=== PATIENT | female | born 1985 | race Caucasian/White ===

== ENCOUNTER 2020-04-24 18:26 | Emergency (ER) | payer BC ==
[2020-04-24] MEDS ORDERED: Lactated Ringers 1,000 ML IV ONE (18:47)
[2020-04-24] MEDS ORDERED: diphenhydrAMINE 50 MG/ML SDV IVPUSH ONE (18:49)
[2020-04-24] MEDS ORDERED: Metoclopramide 10 MG/2 ML SDV IVPUSH ONE (18:49)
--- NOTE | 2020-04-24 18:59 | EDM.PDOC ---
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 LMP was 02/28/2020. She is approximately 8 weeks . Patient states she has vomited three to four times today and can only keep solid foods down for 30 minutes before she needs to vomit. She is prescribed Zofran and Phenergan and took Zofran today without any relief. She states she gets weekly IV fluid infusions at [facility], but they were full so she didn't get it today. She admits to a headache and has history of migraines. She states that topical Phenergan works better for her than oral. (Ami Ross) - Related Data Allergies Allergy/AdvReac Type Severity Reaction Status Date / Time No Known Allergies Allergy Verified 04/24/20 18:38 Past Medical History - Past Health History Medical/Surgical History: Denies Medical/Surgical History Neurological History: Reports: Migraines Psychiatric History: Reports: Anxiety, Depression <Ami Ross - Last Filed: 04/24/20 18:50> Social & Family History - Family History Family Medical History: No Pertinent Family History - Tobacco Use Tobacco Use Status *Q: Never Tobacco User - Caffeine Use Caffeine Use: Reports: None - Recreational Drug Use Recreational Drug Use: No <Ami Ross - Last Filed: 04/24/20 18:50> ED ROS GENERAL - Review of Systems Review Of Systems: Comprehensive ROS is negative, except as noted in HPI. <Ami Ross - Last Filed: 04/24/20 18:50> - Review of Systems Review Of Systems: See Below <Graham Nash - Last Filed: 04/24/20 20:04> ED EXAM - Physical Exam Exam: See Below Exam Limited By: No Limitations General Appearance: Alert, WD/WN, No Apparent Distress Ears: Normal External Exam Nose: Normal Inspection, Normal Mucosa Throat/Mouth: Normal Inspection, Normal Lips, Normal Gums Head: Atraumatic, Normocephalic Neck: Normal Inspection, Supple, Non-Tender, Full Range of Motion Respiratory/Chest: No Respiratory Distress, Lungs Clear, Normal Breath Sounds Cardiovascular: Normal Peripheral Pulses, Regular Rate, Rhythm GI/Abdominal Exam: Normal Bowel Sounds, Soft, Non-Tender, Other (Gravid) Back Exam: Normal Inspection, Full Range of Motion Extremities: Normal Inspection, Normal Range of Motion, Non-Tender Neurological: Alert, Oriented, CN II-XII Intact, Normal Cognition Psychiatric: Normal Affect, Normal Mood Skin Exam: Warm, Dry, Intact, Normal Color, No Rash Lymphatic: No Adenopathy <Ami Ross - Last Filed: 04/24/20 18:50> Course <Ami Ross - Last Filed: 04/24/20 18:50> <Graham Nash - Last Filed: 04/24/20 20:04> - Vital Signs Last Recorded V/S: Last Vital Signs Temp 98.1 F 04/24/20 18:34 Pulse 86 04/24/20 18:34 Resp 14 04/24/20 18:34 BP 150/85 H 04/24/20 18:34 Pulse Ox 98 04/24/20 18:34 - Orders/Labs/Meds Labs: Laboratory Tests 04/24/20 04/24/20 Range/Units 18:59 18:59 WBC 9.72 (3.98-10.04) K/mm3 RBC 4.77 (3.98-5.22) M/mm3 Hgb 13.1 (11.2-15.7) gm/dl Hct 39.6 (34.1-44.9) % MCV 83.0 (79.4-94.8) fl MCH 27.5 (25.6-32.2) pg MCHC 33.1 (32.2-35.5) g/dl RDW Std Deviation 43.4 (36.4-46.3) fL Plt Count 235 (182-369) K/mm3 MPV 9.3 L (9.4-12.3) fl Neut % (Auto) 71.0 (34.0-71.1) % Lymph % (Auto) 21.5 (19.3-51.7) % [place] % (Auto) 6.2 (4.7-12.5) % Eos % (Auto) 1.0 (0.7-5.8) Baso % (Auto) 0.2 (0.1-1.2) % Neut # (Auto) 6.90 H (1.56-6.13) K/mm3 Lymph # (Auto) 2.09 (1.18-3.74) K/mm3 [place] # (Auto) 0.60 H (0.24-0.36) K/mm3 Eos # (Auto) 0.10 (0.04-0.36) K/mm3 Baso # (Auto) 0.02 (0.01-0.08) K/mm3 Sodium 137 (136-145) mEq/L Potassium 3.7 (3.5-5.1) mEq/L Chloride 102 (98-107) mEq/L Carbon Dioxide 24 (21-32) mEq/L Anion Gap 14.7 (5-15) BUN 9 (7-18) mg/dL Creatinine 0.8 (0.55-1.02) mg/dL Est Cr Clr Drug Dosing 104.53 mL/min Estimated GFR (MDRD) > 60 (>60) mL/min BUN/Creatinine Ratio 11.3 L (14-18) Glucose 98 (74-106) mg/dL Calcium 8.9 (8.5-10.1) mg/dL Total Bilirubin 0.4 (0.2-1.0) mg/dL AST 13 L (15-37) U/L ALT 27 (14-59) U/L Alkaline Phosphatase 48 (46-116) U/L Total Protein 6.8 (6.4-8.2) g/dl Albumin 3.3 L (3.4-5.0) g/dl Globulin 3.5 gm/dL Albumin/Globulin Ratio 0.9 L (1-2) Meds: Medications Discontinued Medications Generic Name Dose Route Start Last Admin Trade Name Freq PRN Reason Stop Dose Admin Diphenhydramine HCl 50 mg 04/24/20 18:49 04/24/20 19:14 Benadryl IVPUSH 04/24/20 18:50 50 mg ONETIME ONE Administration Lactated Ringer's 1,000 mls @ 1,000 mls/hr 04/24/20 18:47 04/24/20 19:15 Ringers, Lactated IV 04/24/20 19:46 1,000 mls/hr .BOLUS ONE Administration Metoclopramide HCl 10 mg 04/24/20 18:49 04/24/20 19:16 Reglan IVPUSH 04/24/20 18:50 10 mg ONETIME ONE Administration - Re-Assessments/Exams Free Text/Narrative Re-Assessment/Exam: 04/24/20 19:01 Yissel is a 34 year old female presenting to ED with intractable nausea and vomiting. LMP was 02/27; approximate gestational age is 8 weeks. She is still experiencing nausea, vomiting and currently complains of a headache so Reglan and Benadryl was given. Will wait on results from CBC and CMP to assess status. (Ami Ross) 04/24/20 20:02 I examined he patient myself and I agree with Ami's assessment and plan. I ordered an IV LR 1L bolus, reglan 10mg IV, benadryl 50mg IV and labs. Her CBC and CMP look good. She feels better after the fluid. I will discharge her home. (Graham Nash) Departure <Ami Ross - Last Filed: 04/24/20 18:50> - Departure Time of Disposition: 20:30 Condition: Good - Discharge Information *PRESCRIPTION DRUG MONITORING PROGRAM REVIEWED*: Not Applicable *COPY OF PRESCRIPTION DRUG MONITORING REPORT IN PATIENT ROMANA: Not Applicable <Graham Nash - Last Filed: 04/24/20 20:04> - Departure Disposition: Home, Self-Care 01 Clinical Impression: Nausea and vomiting during Qualifiers: Weeks of gestation: 8 weeks Qualified Code(s): Z3A.08 - 8 weeks gestation of - Discharge Information Referrals: Josey Sosa MD [Primary Care Provider] - 1 Week Forms: ED Department Discharge Additional Instructions: Take your medication as prescribed. Try to push the fluids. Please return if you are worse. Sepsis Event Note (ED) - Evaluation Sepsis Screening Result: No Definite Risk <Ami Ross - Last Filed: 04/24/20 18:50> - Focused Exam Vital Signs: Vital Signs Temp Pulse Resp BP Pulse Ox 04/24/20 18:34 98.1 F 86 14 150/85 H 98
== END 2020-04-24 20:22 | disposition home or self-care (01) ==
LOC: JD.ED 18:26
DX: O21.9 Vomiting of pregnancy, unspecified (principal); Z3A.08 8 weeks gestation of pregnancy
CPT/HCPCS: 36415; 80053; 85025; 96374; 96375; 99284; J1200; J2765; J7120; 99283

== ENCOUNTER 2020-05-16 19:41 | Emergency (ER) | payer BC, OTHER ==
[2020-05-16] MEDS ORDERED: Sodium Chloride 0.9% 1,000 ML IV STA (20:16)
--- NOTE | 2020-05-16 20:21 | EDM.PDOC ---
ED HPI GENERAL MEDICAL PROBLEM - General Chief Complaint: FILM HISTORIAN Problem Stated Complaint: 11 WKS PG ABDOMINAL PAIN Time Seen by Provider: 05/16/20 19:52 Source of Information: Reports: Patient, RN Notes Reviewed History Limitations: Reports: No Limitations - History of Present Illness INITIAL COMMENTS - FREE TEXT/NARRATIVE: Patient is a 35-year-old female 11 weeks gestation presenting to the emergency department with complaints of severe pelvic cramping radiating into her lower back. This began around 1700 this evening. At 1 point, she states the pain was 10 out of 10 and that she was on the floor in the position due to the pain. It has since improved slightly but is definitely still present. She has had no vaginal bleeding associated with this. She states that she called the labor and delivery department prior to coming here and they spoke to her FILM HISTORIAN, Dr. Sosa, and she recommended that she come in to the ER for evaluation. She did see her FILM HISTORIAN today for routine follow-up and everything was found to be normal. heart tones were normal. She did have an early ultrasound completed which she states was also normal. Lower Abdominal Pain Score (Numeric/FACES): 8 - Related Data Allergies Allergy/AdvReac Type Severity Reaction Status Date / Time No Known Allergies Allergy Verified 05/16/20 19:52 Home Meds: Home Meds FLUoxetine HCl [Prozac] 20 mg PO DAILY 04/24/20 [History] FLUoxetine [PROzac] 40 mg PO DAILY 04/24/20 [History] Ondansetron [Zofran ODT] 4 mg PO Q4HR PRN 04/24/20 [History] Promethazine [Phenergan] 25 mg PO Q8H PRN 04/24/20 [History] Past Medical History - Past Health History Medical/Surgical History: Denies Medical/Surgical History FILM HISTORIAN History: Reports: Neurological History: Reports: Migraines Psychiatric History: Reports: Anxiety, Depression Social & Family History - Family History Family Medical History: No Pertinent Family History - Tobacco Use Tobacco Use Status *Q: Never Tobacco User - Caffeine Use Caffeine Use: Reports: None - Recreational Drug Use Recreational Drug Use: No ED ROS GENERAL - Review of Systems Review Of Systems: See Below Constitutional: Reports: No Symptoms HEENT: Reports: No Symptoms Respiratory: Reports: No Symptoms Cardiovascular: Reports: No Symptoms Endocrine: Reports: No Symptoms GI/Abdominal: Reports: No Symptoms : Reports: Other (pelvic cramping). Denies: Discharge, Dysuria, Flank Pain, Frequency Musculoskeletal: Reports: No Symptoms Skin: Reports: No Symptoms Neurological: Reports: No Symptoms Psychiatric: Reports: No Symptoms Hematologic/Lymphatic: Reports: No Symptoms Immunologic: Reports: No Symptoms ED EXAM - Physical Exam Exam: See Below General Appearance: Alert, WD/WN, No Apparent Distress Respiratory/Chest: No Respiratory Distress, Lungs Clear, Normal Breath Sounds, No Accessory Muscle Use, Chest Non-Tender Cardiovascular: Normal Peripheral Pulses, Regular Rate, Rhythm, No Edema, No Gallop, No JVD, No Murmur, No Rub GI/Abdominal Exam: Normal Bowel Sounds, Soft, No Organomegaly, No Distention, No Abnormal Bruit, No Mass, Pelvis Stable, Tender (suprapubic tenderness) (Female) Exam: Normal External Exam, Normal Speculum Exam. No: Cervical Dilatation, Cervical Discharge, Cervical Lesions, Products of Conception, Tissue Present in Cervix/Vagina, Vaginal Bleeding Neurological: Alert, Oriented, CN II-XII Intact, Normal Cognition, Normal Gait, Normal Reflexes, No Motor/Sensory Deficits Psychiatric: Normal Affect, Normal Mood Skin Exam: Warm, Dry, Intact, Normal Color, No Rash Course - Vital Signs Last Recorded V/S: Last Vital Signs Temp 98.5 F 05/16/20 19:50 Pulse 80 05/16/20 19:50 Resp 16 05/16/20 19:50 BP 147/89 H 05/16/20 19:50 Pulse Ox 99 05/16/20 19:50 - Orders/Labs/Meds Labs: Laboratory Tests 05/16/20 05/16/20 05/16/20 Range/Units 19:55 20:30 20:30 WBC 7.65 (3.98-10.04) K/mm3 RBC 4.44 (3.98-5.22) M/mm3 Hgb 12.3 (11.2-15.7) gm/dl Hct 37.0 (34.1-44.9) % MCV 83.3 (79.4-94.8) fl MCH 27.7 (25.6-32.2) pg MCHC 33.2 (32.2-35.5) g/dl RDW Std Deviation 45.3 (36.4-46.3) fL Plt Count 222 (182-369) K/mm3 MPV 9.3 L (9.4-12.3) fl Neut % (Auto) 67.2 (34.0-71.1) % Lymph % (Auto) 24.6 (19.3-51.7) % [place] % (Auto) 5.8 (4.7-12.5) % Eos % (Auto) 2.2 (0.7-5.8) Baso % (Auto) 0.1 (0.1-1.2) % Neut # (Auto) 5.14 (1.56-6.13) K/mm3 Lymph # (Auto) 1.88 (1.18-3.74) K/mm3 [place] # (Auto) 0.44 H (0.24-0.36) K/mm3 Eos # (Auto) 0.17 (0.04-0.36) K/mm3 Baso # (Auto) 0.01 (0.01-0.08) K/mm3 Sodium 137 (136-145) mEq/L Potassium 3.8 (3.5-5.1) mEq/L Chloride 105 (98-107) mEq/L Carbon Dioxide 24 (21-32) mEq/L Anion Gap 11.8 (5-15) BUN 6 L (7-18) mg/dL Creatinine 0.7 (0.55-1.02) mg/dL Est Cr Clr Drug Dosing 118.35 mL/min Estimated GFR (MDRD) > 60 (>60) mL/min BUN/Creatinine Ratio 8.6 L (14-18) Glucose 113 H (74-106) mg/dL Calcium 8.7 (8.5-10.1) mg/dL Magnesium 1.8 (1.8-2.4) mg/dl Total Bilirubin 0.2 (0.2-1.0) mg/dL AST 19 (15-37) U/L ALT 25 (14-59) U/L Alkaline Phosphatase 51 (46-116) U/L Total Protein 6.2 L (6.4-8.2) g/dl Albumin 2.7 L (3.4-5.0) g/dl Globulin 3.5 gm/dL Albumin/Globulin Ratio 0.8 L (1-2) Urine Color Yellow (Yellow) Urine Appearance Cloudy H (Clear) Urine pH 7.0 (5.0-8.0) Ur Specific [place] > or = 1.030 (1.005-1.030) Urine Protein Negative (Negative) Urine Glucose (UA) Negative (Negative) Urine Ketones Negative (Negative) Urine Occult Blood Negative (Negative) Urine Nitrite Negative (Negative) Urine Bilirubin Negative (Negative) Urine Urobilinogen 0.2 (0.2-1.0) Ur Leukocyte Esterase Negative (Negative) Meds: Medications Discontinued Medications Generic Name Dose Route Start Last Admin Trade Name Devynq PRN Reason Stop Dose Admin Sodium Chloride 1,000 mls @ 999 mls/hr 05/16/20 20:16 05/16/20 20:30 Normal Saline IV 05/16/20 21:16 999 mls/hr NOW STA Administration Ondansetron HCl 4 mg 05/16/20 20:24 05/16/20 20:31 Zofran IVPUSH 05/16/20 20:25 4 mg ONETIME ONE Administration Ondansetron HCl Confirm 05/16/20 20:24 05/16/20 20:31 Zofran Administered 05/16/20 20:25 Not Given Dose 4 mg .ROUTE .STK-MED ONE - Re-Assessments/Exams Free Text/Narrative Re-Assessment/Exam: Patient is a 35-year-old female G1, P0 approximate 11 weeks gestation presenting to the emergency department with acute onset of pelvic cramping radiating through to her back. This started around 1700 this evening. She states at 1 point it was so severe that she was curled up in the position on the floor. It is still present but has improved slightly. She called and spoke with labor and delivery who spoke with her FILM HISTORIAN was recommended that she come in for evaluation. She has had no bleeding or abnormal vaginal discharge. Denies dysuria. I have ordered blood work, urinalysis, OB transvaginal ultrasound. Once this is complete, I will do a pelvic exam and then consult with the patient's FILM HISTORIAN. 05/16/20 21:55 Hematology was grossly unremarkable. Urinalysis negative for infection. Transvaginal ultrasound shows a single live intrauterine gestation measuring 11 weeks 5 days with an estimated due date of 11/30/2020. 3.3 cm uterine fundal mass likely represents a fibroid. Pelvic exam was normal. Cervix is closed. There is no bleeding noted from the cervical os or blood within the vagina. Case discussed with Dr. Sosa. She recommends Tylenol and rest. She stated that if she needs to follow-up with her in the clinic still this week, she can. I will provide her with a note off from work for tomorrow. Discharge instructions as documented. Departure - Departure Time of Disposition: 21:56 Disposition: Home, Self-Care 01 Condition: Good Clinical Impression: Pelvic pain affecting Qualifiers: Trimester: first trimester Qualified Code(s): O26.891 - Other specified related conditions, first trimester - Discharge Information *PRESCRIPTION DRUG MONITORING PROGRAM REVIEWED*: No *COPY OF PRESCRIPTION DRUG MONITORING REPORT IN PATIENT ROMANA: No Instructions: Pelvic Pain, Female, [id number] Referrals: Josey Sosa MD [Primary Care Provider] - Forms: ED Department Discharge, ED Return to Work/School Form Additional Instructions: You were seen in the emergency department for pelvic cramping that began early this evening. Work-up included blood work, urinalysis, and a transvaginal ultrasound. Results of the work-up were found to be normal. Case was discussed with your FILM HISTORIAN. She recommends routine Tylenol administration and rest. Ensure that you are getting an adequate amount of fluid. If the pain persist, you may follow-up with her in the clinic still this week or early next week. Return to ER as needed. Sepsis Event Note (ED) - Evaluation Sepsis Screening Result: No Definite Risk
[2020-05-16] MEDS ORDERED: Ondansetron 4 MG/2 ML SDV IVPUSH ONE (20:24)
[2020-05-16] MEDS ORDERED: Ondansetron 4 MG/2 ML SDV ONE (20:24)
--- NOTE | 2020-05-17 08:54 | US ---
First trimester obstetrical ultrasound: Multiple real-time images were obtained transabdominally. Dates: Working YVONNE: 12/04/20, gestational age 11 weeks 1 day Current ultrasound: YVONNE 11/30/20, gestational age 11 weeks 5 days Single intrauterine gestation is seen. Small embryo is identified. Small fibroid is felt to be present within the uterus measuring approximately 3.3 x 3.2 x 3.2 cm. Amniotic fluid volume is normal. Maternal right ovary is normal. Maternal left ovary is not seen. No free fluid is appreciated. Measurements: [place]-rump length: 5.05 cm - 11 weeks 5 days Heart rate: 176 bpm Impression: 1. Single intrauterine gestation with dates as noted above. 2. Small uterine fibroid. 3. Nonvisualized maternal left ovary. 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
== END 2020-05-16 22:05 | disposition home or self-care (01) ==
LOC: JD.ED 19:41
DX: O99.891 Other specified diseases and conditions complicating pregnancy (principal); R10.2 Pelvic and perineal pain; Z79.899 Other long term (current) drug therapy; Z3A.11 11 weeks gestation of pregnancy
CPT/HCPCS: 36415; 76801; 80053; 81003; 83735; 85025; 96374; 99284; J2405; J7030; 99283

== ENCOUNTER 2020-11-19 10:27 | Inpatient (IN) | payer OTHER ==
[2020-11-19] MEDS ORDERED: Sodium Chloride 0.9% 10 ML Syringe FLUSH PRN (11:27)
[2020-11-19] MEDS ORDERED: Nalbuphine 10 MG/1 ML Vial IVPUSH PRN (11:27)
[2020-11-19] MEDS ORDERED: Oxytocin/Lactated Ringers 10 UNIT/1,000 ML BAG IV SCH ×2 (11:30)
[2020-11-19] MEDS ORDERED: Misoprostol 25 MCG (1/4 of 100 MCG) Tab VAG PRN (11:46)
[2020-11-19] MEDS ORDERED: Lactated Ringers 1,000 ML IV SCH (12:00)
--- NOTE | 2020-11-19 12:25 | PCM.LDHP ---
L&D History of Present Illness - General Date of Service: 11/19/20 Admit Problem/Dx: Patient Status Order with Admit Dx/Problem 11/19/20 10:38 Patient Status [ADT] Routine 11/19/20 11:28 Patient Status [ADT] Routine Admission Diagnosis/Problem Admission Diagnosis/Problem Source of Information: Patient History Limitations: Reports: No Limitations - History of Present Illness Introduction:: Yissel Alva is a 35-year-old female at 37 weeks 6 days (YVONNE 12/04/2020) by LMP consistent with a 7-week ultrasound who presents with complaints of worsening itching over the last several days. She reports that she started to have some itching on the palms of her hands during the day on , 11/16. She then started to have some itching on the soles of her feet and that evening. In the morning of Friday, 11/17, she started to have itching on her entire body that has been steadily getting worse. She denies any rashes or any changes in her skin care. She denies any areas of redness or erythema. She has not been having any itching throughout the . She states that she has been feeling good movement. She has been having irregular contractions with times where they will be about 2 to 3 minutes apart for a short while and at other times they can be hours between contractions. She denies any leaking of fluid or vaginal bleeding. Timing/Duration: Reports: gradual onset (Of itching over the last several days), getting worse (For her itching that she has on the palms of her hands and soles of her feet where it is now on her entire body) Associated Symptoms: Denies: vaginal bleeding, vaginal discharge, vaginal fluid Present Illness Comments:: Yissel Alva is a 35-year-old G1, P0 female at 37 weeks 6 days (YVONNE 12/04/2020) by LMP consistent with a 7-week ultrasound who presents with new onset itching on the palms of her hands and soles of her feet. Patient has had an overall uncomplicated . She did have hyperemesis gravidarum in early until around 16 weeks of or so. She has not had significant nausea or vomiting since then. She had a normal anatomy ultrasound. There was noted to be mild pyelectasis in early monitoring of the but this resolved spontaneously. She was also noted to have a circumvallate placenta. She was monitored for growth given this finding on ultrasound. The growth has been suspected large for gestational age with recent ultrasounds being in the 97th to the 98th percentile for growth. She reports that she has been on Prozac 20 mg during the early and was increased to 60 mg but had some side effects with this. She is currently taking 40 mg daily. She was given Tdap vaccine on 09/07/2020. Her GBS swab was negative Her care has been with Dr. 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 in 2017 done for LUIS-3 G1: Current labs Blood type: O+ Antibody screen: Negative First trimester hematocrit/hemoglobin: 37.5%/12.9 on 05/16/2020 Platelets: 231 on 05/16/2020 Urine culture: Negative Rubella status: Immune Hepatitis B surface antigen: Negative RPR: Negative HIV: Negative Gonorrhea: Negative Chlamydia: Negative Anatomy ultrasound: Overall normal anatomy, circumvallate placenta, 97th percentile on most recent ultrasound done on 10/23/2020 One hour glucose tolerance test: 108 Second trimester hematocrit/hemoglobin: 33.7%/11.5 on 09/07/2020 Platelets: 212 on 09/07/2020 GBS status: Negative - Related Data Allergies/Adverse Reactions: Allergies Allergy/AdvReac Type Severity Reaction Status Date / Time No Known Allergies Allergy Verified 05/16/20 19:52 Home Medications: Home Meds FLUoxetine [PROzac] 40 mg PO DAILY 11/19/20 [History] Ondansetron [Zofran Odt] 1 tab PO Q8HR PRN 11/19/20 [History] Pnv,Calcium 72/Iron/Folic Acid [ Vitamin with Low Iron] 1 each PO DAILY 11/19/20 [History] Past Medical History 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: Reports: : 1 Para: 0 Neurological History: Reports: Migraines Psychiatric History: Reports: Anxiety, Depression - Past Surgical History HEENT Surgical History: Reports: Oral Surgery ([place] tooth extraction), Tonsillectomy Female Surgical History: Reports: ALLEGRA (2017) Social & Family History - Family History Family Medical History: No Pertinent Family History - Tobacco Use Tobacco Use Status *Q: Former Tobacco User Tobacco Use Within Last Twelve Months: Cigarettes - Tobacco Core Measures Tobacco Use/Smoking Within Last 30 Days: No Smokeless Tobacco Use in Last 30 Days: No - Caffeine Use Caffeine Use: Reports: None - Alcohol Use Alcohol Use History: No - Recreational Drug Use Recreational Drug Use: No Drug Use in Last 12 Months: No - Living Situation & Occupation Living situation: Reports: , with Spouse H&P Review of Systems - Review of Systems: Review Of Systems: See Below General: Denies: Fever, Chills, Malaise, Weakness, Fatigue HEENT: Reports: Sinus Congestion. Denies: Headaches, Rhinitis, Post Nasal Drip, Sore Throat, Visual Changes Pulmonary: Denies: Shortness of Breath, Wheezing, Pleuritic Chest Pain, Cough Cardiovascular: Denies: Chest Pain, Palpitations, Dyspnea on Exertion Gastrointestinal: Reports: Nausea. Denies: Abdominal Pain, Constipation, Diarrhea, Vomiting Genitourinary: Denies: Dysuria, Frequency, Burning, Pain, Urgency Musculoskeletal: Reports: Back Pain (and hip pain of ) Skin: Reports: Pruritis (on whole body but started on palms of hands and soles of feet). Denies: Rash, Lesions Psychiatric: Denies: Depression, Anxiety L&D Exam - Exam Exam: See Below - Vital Signs Vital Signs: Last Vital Signs Temp Pulse 89 11/19/20 11:00 Resp BP Pulse Ox Weight: 117.934 kg - OB Specific Contraction Duration (sec): 30-60 Contraction Frequency (min): 2-7 Contraction Intensity: Mild Movement: Active Heart Tones: Present Heart Tones per Min: 135 (+15 x 15 accelerations, intermittent variable decelerations) Heart Rate (FHR) Variability: Moderate (6-25 bpm) Presentation: Vertex Estimated Weight: 7.5-8 pound by Dennis - Loyd Score Loyd Score Cervix Position: Posterior Loyd Score Consistency: Soft Loyd Score Effacement: 31-50% (50%) Loyd Score Dilation: 1-2 cm (1 cm) Loyd Score Infant's Station: -3 (-4) Loyd Score Total: 4 - Exam General: Alert, Oriented HEENT: Conjunctiva Clear, EOMI Neck: Supple, Trachea Midline Lungs: Clear to Auscultation, Normal Respiratory Effort Cardiovascular: Regular Rate, Regular Rhythm GI/Abdominal Exam: Soft, Non-Tender, No Distention, Other (Gravid). No: Gua rding, Rigid, Rebound Genitourinary: Normal external exam Extremities: Normal Inspection, Non-Tender, Pedal Edema (1+ edema in bilateral lower extremities to knees) Skin: Warm, Dry, Intact, Other (No rashes or excoriations noted) Psychiatric: Alert, Normal Affect, Normal Mood - Patient Data Lab Results Last 24 hrs: Laboratory Results - last 24 hr 11/19/20 11/19/20 11/19/20 Range/Units 10:50 10:50 10:50 WBC 7.06 (3.98-10.04) K/mm3 RBC 3.96 L (3.98-5.22) M/mm3 Hgb 10.7 L D (11.2-15.7) gm/dl Hct 33.0 L (34.1-44.9) % MCV 83.3 (79.4-94.8) fl MCH 27.0 (25.6-32.2) pg MCHC 32.4 (32.2-35.5) g/dl RDW Std Deviation 42.4 (36.4-46.3) fL Plt Count 229 (182-369) K/mm3 MPV 10.9 (9.4-12.3) fl Neut % (Auto) 62.9 (34.0-71.1) % Lymph % (Auto) 29.5 (19.3-51.7) % [place] % (Auto) 5.5 (4.7-12.5) % Eos % (Auto) 1.4 (0.7-5.8) Baso % (Auto) 0.3 (0.1-1.2) % Neut # (Auto) 4.44 (1.56-6.13) K/mm3 Lymph # (Auto) 2.08 (1.18-3.74) K/mm3 [place] # (Auto) 0.39 H (0.24-0.36) K/mm3 Eos # (Auto) 0.10 (0.04-0.36) K/mm3 Baso # (Auto) 0.02 (0.01-0.08) K/mm3 Sodium 137 (136-145) mEq/L Potassium 4.0 (3.5-5.1) mEq/L Chloride 104 (98-107) mEq/L Carbon Dioxide 21 (21-32) mEq/L Anion Gap 16.0 H (5-15) BUN 10 (7-18) mg/dL Creatinine 0.7 (0.55-1.02) mg/dL Est Cr Clr Drug Dosing 118.35 mL/min Estimated GFR (MDRD) > 60 (>60) mL/min BUN/Creatinine Ratio 14.3 (14-18) Glucose 105 H (70-99) mg/dL Calcium 8.6 (8.5-10.1) mg/dL Total Bilirubin 0.3 (0.2-1.0) mg/dL GGT 18 (5-55) U/L AST 47 H (15-37) U/L ALT 66 H (14-59) U/L Alkaline Phosphatase 264 H (46-116) U/L Lactate Dehydrogenase 242 H (81-234) U/L Total Protein 6.3 L (6.4-8.2) g/dl Albumin 2.1 L (3.4-5.0) g/dl Globulin 4.2 gm/dL Albumin/Globulin Ratio 0.5 L (1-2) Result Diagrams: 11/19/20 10:50 11/19/20 10:50 - Problem List (1) 37 weeks gestation of SNOMED Code(s): 96436590 ICD Code: Z3A.37 - 37 WEEKS GESTATION OF Status: Acute Current Visit: Yes (2) Intrahepatic cholestasis of in third trimester, antepartum SNOMED Code(s): 543833743, 355365354 ICD Code: O26.613 - LIVER AND BILIARY TRACT DISORD IN , THIRD TRIMESTER; K83.1 - OBSTRUCTION OF BILE DUCT Status: Acute Current Visit: Yes (3) Pre-eclampsia during in third trimester, antepartum SNOMED Code(s): 797308645, 324734130 ICD Code: O14.93 - UNSPECIFIED PRE-ECLAMPSIA, THIRD TRIMESTER Status: Acute Current Visit: Yes (4) Anxiety during SNOMED Code(s): 85504244527649 ICD Code: O99.340 - OTH MENTAL DISORDERS COMPLICATING , UNSP TRIMESTER; F41.9 - ANXIETY DISORDER, UNSPECIFIED Status: Acute Current Visit: Yes (5) Depression affecting SNOMED Code(s): 89303845382637 ICD Code: O99.340 - OTH MENTAL DISORDERS COMPLICATING , UNSP TRIMESTER; F32.9 - MAJOR DEPRESSIVE DISORDER, SINGLE EPISODE, UNSPECIFIED Status: Acute Current Visit: Yes (6) Obesity affecting , antepartum SNOMED Code(s): 701246618200, 659525208580 ICD Code: O99.210 - OBESITY COMPLICATING , UNSPECIFIED TRIMESTER Status: Acute Current Visit: Yes (7) Circumvallate placenta during in third trimester, antepartum SNOMED Code(s): 2078446, 25048445 ICD Code: O43.113 - CIRCUMVALLATE PLACENTA, THIRD TRIMESTER Status: Acute Current Visit: Yes Problem List Initiated/Reviewed/Updated: Yes Orders Last 24hrs: Active Orders 24 hr Category Date Time Status Patient Status [ADT] Routine ADT 11/19/20 11:28 Active Activity as Tolerated [RC] PFP Care 11/19/20 11:28 Active Communication Order [RC] ASDIRECTED Care 11/19/20 11:28 Active Communication Order [RC] ASDIRECTED Care 11/19/20 11:46 Active Communication Order [RC] ASDIRECTED Care 11/19/20 11:46 Active Communication Order [RC] ASDIRECTED Care 11/19/20 11:46 Active Heart Tones [RC] ASDIRECTED Care 11/19/20 11:29 Active Non Stress Test [RC] PER UNIT ROUTINE Care 11/19/20 10:38 Active Notify Provider [RC] ASDIRECTED Care 11/19/20 11:46 Active Notify Provider [RC] ASDIRECTED Care 11/19/20 11:48 Active Notify Provider [RC] PFP Care 11/19/20 11:28 Active Notify Provider [RC] PRN Care 11/19/20 11:28 Active Peripheral IV Care [RC] . DIRECTED Care 11/19/20 11:29 Active Urinary Catheter Assessment [RC] ASDIRECTED Care 11/19/20 11:27 Active Vaginal Exam [RC] ASDIRECTED Care 11/19/20 11:46 Active Vital Signs [RC] ASDIRECTED Care 11/19/20 11:46 Active Vital Signs [RC] PER UNIT ROUTINE Care 11/19/20 10:38 Active Regular Diet [DIET] Diet 11/19/20 Lunch Active BILE ACIDS [REF] Stat Lab 11/19/20 10:50 Received BLOOD BANK HOLD SPECIMEN [BBK] Routine Lab 11/19/20 10:50 Ordered CORONAVIRUS COVID-19 RONAK [MOLEC] Stat Lab 11/19/20 11:20 Received HEP C VIRUS AB [REF] Routine Lab 11/19/20 10:50 Received PROTEIN/CREATININE RATIO,URINE [URCHEM] Routine Lab 11/19/20 11:12 Ordered RAPID PLASMA REAGIN,RPR [CHEM] Routine Lab 11/19/20 11:28 Ordered Lactated Ringers [Ringers, Lactated] 1,000 ml Med 11/19/20 11:30 Active IV ASDIRECTED Lactated Ringers [Ringers, Lactated] 1,000 ml Med 11/19/20 12:00 Active IV ASDIRECTED Nalbuphine [Nubain] Med 11/19/20 11:27 Active 10 mg IVPUSH Q2H PRN Oxytocin/Lactated Ringers [Pitocin in LR 10 Units/1,000 Med 11/19/20 11:30 Active ML] 10 unit in 1,000 ml IV .CONTINUOUS Oxytocin/Lactated Ringers [Pitocin in LR 10 Units/1,000 Med 11/19/20 11:30 Active ML] 10 unit in 1,000 ml IV TITRATE Sodium Chloride 0.9% [Saline Flush] Med 11/19/20 11:27 Active 10 ml FLUSH ASDIRECTED PRN miSOPROStoL [Cytotec] Med 11/19/20 11:46 Active 25 mcg VAG Q4H PRN Electronic Heart Tones Ext w TOCO [WOMSER] Oth 11/19/20 11:28 Ordered Routine Electronic Heart Tones Internal [WOMSER] Per Unit Oth 11/19/20 11:28 Ordered Routine Peripheral IV Insertion Adult [OM.PC] Routine Oth 11/19/20 11:28 Ordered Resuscitation Status Routine Resus Stat 11/19/20 10:38 Ordered Medication Orders Lactated Ringer's (Ringers, Lactated) 1,000 mls @ 100 mls/hr IV ASDIRECTED KAMALA Oxytocin/Lactated Ringer's (Pitocin In Lr 10 Units/1,000 Ml) 10 unit in 1,000 mls @ 12 mls/hr IV TITRATE KAMALA; Protocol Oxytocin/Lactated Ringer's (Pitocin In Lr 10 Units/1,000 Ml) 10 unit in 1,000 mls @ 500 mls/hr IV .CONTINUOUS KAMALA Lactated Ringer's (Ringers, Lactated) 1,000 mls @ 40 mls/hr IV ASDIRECTED KAMALA Misoprostol (Misoprostol 25 Mcg (1/4 Of 100 Mcg) Tab) 25 mcg VAG Q4H PRN PRN Reason: cervical ripening Nalbuphine HCl (Nalbuphine 10 Mg/1 Ml Vial) 10 mg IVPUSH Q2H PRN PRN Reason: Pain Sodium Chloride (Sodium Chloride 0.9% 10 Ml Syringe) 10 ml FLUSH ASDIRECTED PRN PRN Reason: Keep Vein Open Assessment/Plan Comment:: Yissel Alva is a 35-year-old at 37 weeks 6 days with suspicion of intrahepatic cholestasis of with new onset itching that started on her palms of her hands and soles of her feet and has now been on the entire abdomen and body with elevated liver enzymes, suspected hypertension of that may possibly be preeclampsia with that is complicated by circumvallate placenta, anxiety and depression that is controlled on Prozac 40 mg daily, fetus measuring large for gestational age at the 97th percentile and obesity in Attempted placement of a transcervical [place] bulb manually with cervical exam but was unable to pass the [place] bulb through the cervix. A sterile speculum was then placed and the cervix was visualized. A ring forceps was then used to pass an 18 [place] catheter through the cervix and the [place] balloon was filled with 60 mL of sterile saline. On gentle traction the [place] bulb was felt to be in the correct position. Mother and infant tolerated procedure without difficulty. Cytotec was then started for additional cervical ripening Refer to observation for elective induction of labor Patient with placement of an 18 [place] transcervical [place] bulb that was filled with 60 mL of sterile saline. Start induction of labor with Cytotec 25 mcg vaginally now and every 4 hours for a total of up to 3 doses or until the [place] bulb comes out Continuous monitoring due to concern for gestational hypertension disorder Place IV and have Lactated Ringer's at 125 ml/hr if not tolerating regular diet May have regular diet while on Cytotec induction Activity as tolerated May have epidural as desired Plans to breast-feed after delivery Continue close monitoring of patient's vital signs due to elevated blood pressures that may indicate gestational hypertension versus preeclampsia CBC, CMP, lactate dehydrogenase and urine protein/creatinine ratio were collected GGT and total bile acids were collected. The GGT was within normal limits Hepatitis C lab collected due to not having this checked during the Anticipate vaginal delivery unless otherwise indicated Mykel Ortiz MD 12:38 PM 11/19/2020
[2020-11-19] MEDS: Lactated Ringers 1,000 ML IV SCH ×3 (16:16→23:16)
--- NOTE | 2020-11-19 18:36 | PCM.PNLD ---
Labor Progress Note - VS & Meds Vital Signs: Last Vital Signs Temp 37.3 C 11/19/20 11:46 Pulse 93 11/19/20 11:46 Resp BP 145/92 H 11/19/20 11:46 Pulse Ox Active Medications: Current Medications Lactated Ringer's (Ringers, Lactated) 1,000 mls @ 100 mls/hr IV ASDIRECTED KAMALA Last Admin: 11/19/20 16:16 Dose: 100 mls/hr Documented by: Oxytocin/Lactated Ringer's (Pitocin In Lr 10 Units/1,000 Ml) 10 unit in 1,000 mls @ 12 mls/hr IV TITRATE KAMALA; Protocol Oxytocin/Lactated Ringer's (Pitocin In Lr 10 Units/1,000 Ml) 10 unit in 1,000 mls @ 500 mls/hr IV .CONTINUOUS KAMALA Lactated Ringer's (Ringers, Lactated) 1,000 mls @ 40 mls/hr IV ASDIRECTED KAMALA Misoprostol (Misoprostol 25 Mcg (1/4 Of 100 Mcg) Tab) 25 mcg VAG Q4H PRN PRN Reason: cervical ripening Last Admin: 11/19/20 12:10 Dose: 25 mcg Documented by: Nalbuphine HCl (Nalbuphine 10 Mg/1 Ml Vial) 10 mg IVPUSH Q2H PRN PRN Reason: Pain Sodium Chloride (Sodium Chloride 0.9% 10 Ml Syringe) 10 ml FLUSH ASDIRECTED PRN PRN Reason: Keep Vein Open - Uterine Contractions Contraction Frequency (min): 2-3 Contraction Duration (sec): 45-75 Contraction Intensity: Moderate Uterine Resting Tone: Soft - Monitoring Monitor Mode: Doppler/Auscultation Heart Rate (FHR) Baseline: 130 Heart Rate (FHR) Per Doppler: 130 Heart Rate (FHR) Variability: Moderate (6-25 bpm) Accelerations: Present, 15x15 Decelerations: Early, Intermittent (<50% x 20 min) - Vaginal Exam Dilation (cm): 5 Effacement (Percent): 80 Station: -3 Cervical Position: Midposition Sterile Vaginal Exam Performed By: Mykel Ortiz Vaginal Exam Comment: Artificial rupture membranes performed with [place] with return of a large amount of clear fluid. Mother and tolerated procedure without difficulty. - Labor Progress (Free Text) Labor Progress: Yissel Alva is a 35-year-old at 37 weeks 6 days with suspicion of intrahepatic cholestasis of with new onset itching that started on her palms of her hands and soles of her feet and has now been on the entire abdomen and body with elevated liver enzymes and gestational hypertension that was diagnosed in labor with ongoing mild range blood pressures with normal labs for hypertensive disorders with that is complicated by circumvallate placenta, anxiety and depression that is controlled on Prozac 40 mg daily, fetus measuring large for gestational age at the 97th percentile and obesity in Patient underwent artificial rupture membranes with [place] with return of large amount of clear fluid. Mother and tolerated procedure without difficulty Continuous monitoring due to suspected intrahepatic cholestasis of and gestational hypertension Continue with small amounts of regular diet Activity as tolerated May have epidural as desired Routine vitals Monitor patient's contraction pattern and if not having significant discomfort with her contractions after approximately 1 hour after her rupture of membranes we will start her on Pitocin for augmentation of labor Anticipate vaginal delivery unless otherwise Mykel Ortiz MD 6:37 PM 11/19/2020
[2020-11-19] MEDS ORDERED: ePHEDrine 50 MG/ML SDV IVPUSH PRN (22:07)
[2020-11-19] MEDS ORDERED: diphenhydrAMINE 50 MG/ML SDV IVPUSH PRN (22:07)
--- NOTE | 2020-11-19 22:49 | PCM.PREANE ---
Preanesthetic Assessment - Procedure Proposed Procedure: Continuous labor epidural - Anesthesia/Transfusion/Family Hx Anesthesia History: Prior Anesthesia Without Reaction Transfusion History: No Prior Transfusion(s) - Review of Systems General: No Symptoms Pulmonary: No Symptoms Cardiovascular: No Symptoms Gastrointestinal: No Symptoms Neurological: No Symptoms Other: Reports: None - Physical Assessment Vital Signs: Last Vital Signs Temp 99.2 F 11/19/20 11:46 Pulse 93 11/19/20 11:46 Resp BP 145/92 H 11/19/20 11:46 Pulse Ox Height: 1.75 m Weight: 117.934 kg ASA Class: 2 Mental Status: Alert & Oriented x3 Airway Class: Mallampati = 2 Dentition: Reports: Normal Dentition Thyro-Mental Finger Breadths: 3 Mouth Opening Finger Breadths: 3 ROM/Head Extension: Full Lungs: Clear to Auscultation, Normal Respiratory Effort Cardiovascular: Regular Rate, Regular Rhythm - Lab Values: Laboratory Last Values WBC 7.06 K/mm3 (3.98-10.04) 11/19/20 10:50 RBC 3.96 M/mm3 (3.98-5.22) L 11/19/20 10:50 Hgb 10.7 gm/dl (11.2-15.7) L D 11/19/20 10:50 Hct 33.0 % (34.1-44.9) L 11/19/20 10:50 MCV 83.3 fl (79.4-94.8) 11/19/20 10:50 MCH 27.0 pg (25.6-32.2) 11/19/20 10:50 MCHC 32.4 g/dl (32.2-35.5) 11/19/20 10:50 RDW Std Deviation 42.4 fL (36.4-46.3) 11/19/20 10:50 Plt Count 229 K/mm3 (182-369) 11/19/20 10:50 MPV 10.9 fl (9.4-12.3) 11/19/20 10:50 Neut % (Auto) 62.9 % (34.0-71.1) 11/19/20 10:50 Lymph % (Auto) 29.5 % (19.3-51.7) 11/19/20 10:50 [place] % (Auto) 5.5 % (4.7-12.5) 11/19/20 10:50 Eos % (Auto) 1.4 (0.7-5.8) 11/19/20 10:50 Baso % (Auto) 0.3 % (0.1-1.2) 11/19/20 10:50 Neut # (Auto) 4.44 K/mm3 (1.56-6.13) 11/19/20 10:50 Lymph # (Auto) 2.08 K/mm3 (1.18-3.74) 11/19/20 10:50 [place] # (Auto) 0.39 K/mm3 (0.24-0.36) H 11/19/20 10:50 Eos # (Auto) 0.10 K/mm3 (0.04-0.36) 11/19/20 10:50 Baso # (Auto) 0.02 K/mm3 (0.01-0.08) 11/19/20 10:50 Sodium 137 mEq/L (136-145) 11/19/20 10:50 Potassium 4.0 mEq/L (3.5-5.1) 11/19/20 10:50 Chloride 104 mEq/L (98-107) 11/19/20 10:50 Carbon Dioxide 21 mEq/L (21-32) 11/19/20 10:50 Anion Gap 16.0 (5-15) H 11/19/20 10:50 BUN 10 mg/dL (7-18) 11/19/20 10:50 Creatinine 0.7 mg/dL (0.55-1.02) 11/19/20 10:50 Est Cr Clr Drug Dosing 118.35 mL/min 11/19/20 10:50 Estimated GFR (MDRD) > 60 mL/min (>60) 11/19/20 10:50 BUN/Creatinine Ratio 14.3 (14-18) 11/19/20 10:50 Glucose 105 mg/dL (70-99) H 11/19/20 10:50 Calcium 8.6 mg/dL (8.5-10.1) 11/19/20 10:50 Total Bilirubin 0.3 mg/dL (0.2-1.0) 11/19/20 10:50 GGT 18 U/L (5-55) 11/19/20 10:50 AST 47 U/L (15-37) H 11/19/20 10:50 ALT 66 U/L (14-59) H 11/19/20 10:50 Alkaline Phosphatase 264 U/L (46-116) H 11/19/20 10:50 Lactate Dehydrogenase 242 U/L (81-234) H 11/19/20 10:50 Total Protein 6.3 g/dl (6.4-8.2) L 11/19/20 10:50 Albumin 2.1 g/dl (3.4-5.0) L 11/19/20 10:50 Globulin 4.2 gm/dL 11/19/20 10:50 Albumin/Globulin Ratio 0.5 (1-2) L 11/19/20 10:50 Ur Random Creatinine 117.2 mg/dL (30.0-125.0) 11/19/20 14:00 U Random Total Protein 29.8 mg/dL (0.0-11.8) H 11/19/20 14:00 Protein/Creatinin Ratio 254.3 mg/g (0-149) H 11/19/20 14:00 SARS-CoV-2 RNA (RONAK) Negative (NEGATIVE) 11/19/20 11:20 - Allergies Allergies/Adverse Reactions: Allergies Allergy/AdvReac Type Severity Reaction Status Date / Time No Known Allergies Allergy Verified 05/16/20 19:52 - Acknowledgements Anesthesia Type Planned: Epidural Pt an Appropriate Candidate for the Planned Anesthesia: Yes Alternatives and Risks of Anesthesia Discussed w Pt/Guardian: Yes Pt/Guardian Understands and Agrees with Anesthesia Plan: Yes PreAnesthesia Questionnaire HEENT History: Reports: None Other Genitourinary History: kidney stone SAP PP CONSULTANT History: Reports: Neurological History: Reports: Migraines Psychiatric History: Reports: Anxiety, Depression - Past Surgical History HEENT Surgical History: Reports: Oral Surgery ([place] tooth extraction), Tonsillectomy Female Surgical History: Reports: ALLEGRA (2017) - SUBSTANCE USE Tobacco Use Status *Q: Former Tobacco User Tobacco Use Within Last Twelve Months: Cigarettes Second Hand Smoke Exposure: No Recreational Drug Use History: No - HOME MEDS Home Medications: Home Meds FLUoxetine [PROzac] 40 mg PO DAILY 11/19/20 [History] Ondansetron [Zofran Odt] 1 tab PO Q8HR PRN 11/19/20 [History] Pnv,Calcium 72/Iron/Folic Acid [ Vitamin with Low Iron] 1 each PO DAILY 11/19/20 [History] - CURRENT (IN HOUSE) MEDS Current Meds: Current Medications Diphenhydramine HCl (Diphenhydramine 50 Mg/Ml Sdv) 25 mg IVPUSH Q6H PRN PRN Reason: pruritis Ephedrine Sulfate (Ephedrine 50 Mg/Ml Sdv) 5 mg IVPUSH ASDIRECTED PRN PRN Reason: Hypotension Fentanyl (Fentanyl 100 Mcg/2 Ml Sdv) 100 mcg EPIDUR Q3H PRN PRN Reason: Pain Fentanyl/Bupivacaine HCl (Bupivacaine/Fentanyl/Ns 100 Ml Bag) 100 ml EPIDUR ASDIRECTED PRN PRN Reason: Pain Lactated Ringer's (Ringers, Lactated) 1,000 mls @ 100 mls/hr IV ASDIRECTED KAMALA Last Admin: 11/19/20 16:16 Dose: 100 mls/hr Documented by: Oxytocin/Lactated Ringer's (Pitocin In Lr 10 Units/1,000 Ml) 10 unit in 1,000 mls @ 12 mls/hr IV TITRATE KAMALA; Protocol Oxytocin/Lactated Ringer's (Pitocin In Lr 10 Units/1,000 Ml) 10 unit in 1,000 mls @ 500 mls/hr IV .CONTINUOUS KAMALA Lactated Ringer's (Ringers, Lactated) 1,000 mls @ 40 mls/hr IV ASDIRECTED KAMALA Misoprostol (Misoprostol 25 Mcg (1/4 Of 100 Mcg) Tab) 25 mcg VAG Q4H PRN PRN Reason: cervical ripening Last Admin: 11/19/20 12:10 Dose: 25 mcg Documented by: Nalbuphine HCl (Nalbuphine 10 Mg/1 Ml Vial) 10 mg IVPUSH Q2H PRN PRN Reason: Pain Sodium Chloride (Sodium Chloride 0.9% 10 Ml Syringe) 10 ml FLUSH ASDIRECTED PRN PRN Reason: Keep Vein Open
[2020-11-19] MEDS: Bupivacaine/fentaNYL/NS 100 ML Bag EPIDUR PRN (23:01)
[2020-11-19] MEDS: fentaNYL 100 MCG/2 ML SDV EPIDUR PRN (23:09)
[2020-11-20] MEDS ORDERED: Bupivacaine 0.25% 10 ML SDV ONE ×2
[2020-11-20] MEDS ORDERED: Lidocaine 1.5% with EPINEPHrine 1:200,000 5 ML Amp ONE ×4
[2020-11-20] MEDS ORDERED: Phenylephrine/Normal Saline 100 MCG/ML 10 ML Syringe ONE
[2020-11-20] MEDS: Ondansetron 4 MG/2 ML SDV IVPUSH SCH ×2 (00:27→12:28)
[2020-11-20] MEDS ORDERED: Ondansetron 4 MG/2 ML SDV IVPUSH PRN ×2 (05:34→12:55)
[2020-11-20] MEDS: fentaNYL 100 MCG/2 ML SDV EPIDUR PRN (05:37)
[2020-11-20] MEDS: Bupivacaine/fentaNYL/NS 100 ML Bag EPIDUR PRN (07:29)
--- NOTE | 2020-11-20 07:30 | PCM.PNLD ---
Labor Progress Note - VS & Meds Vital Signs: Last Vital Signs Temp 37.3 C 11/19/20 11:46 Pulse 93 11/19/20 11:46 Resp BP 145/92 H 11/19/20 11:46 Pulse Ox Active Medications: Current Medications Diphenhydramine HCl (Diphenhydramine 50 Mg/Ml Sdv) 25 mg IVPUSH Q6H PRN PRN Reason: pruritis Ephedrine Sulfate (Ephedrine 50 Mg/Ml Sdv) 5 mg IVPUSH ASDIRECTED PRN PRN Reason: Hypotension Last Admin: 11/20/20 00:05 Dose: 5 mg Documented by: Fentanyl (Fentanyl 100 Mcg/2 Ml Sdv) 100 mcg EPIDUR Q3H PRN PRN Reason: Pain Last Admin: 11/20/20 05:37 Dose: 100 mcg Documented by: Fentanyl/Bupivacaine HCl (Bupivacaine/Fentanyl/Ns 100 Ml Bag) 100 ml EPIDUR ASDIRECTED PRN PRN Reason: Pain Last Admin: 11/19/20 23:01 Dose: 100 ml Documented by: Lactated Ringer's (Ringers, Lactated) 1,000 mls @ 100 mls/hr IV ASDIRECTED KAMALA Last Infusion: 11/19/20 23:25 Dose: 40 mls/hr Documented by: Oxytocin/Lactated Ringer's (Pitocin In Lr 10 Units/1,000 Ml) 10 unit in 1,000 mls @ 12 mls/hr IV TITRATE KAMALA; Protocol Last Titration: 11/20/20 06:45 Dose: 20 munits/min, 120 mls/hr Documented by: Oxytocin/Lactated Ringer's (Pitocin In Lr 10 Units/1,000 Ml) 10 unit in 1,000 mls @ 500 mls/hr IV .CONTINUOUS KAMALA Lactated Ringer's (Ringers, Lactated) 1,000 mls @ 40 mls/hr IV ASDIRECTED KAMALA Misoprostol (Misoprostol 25 Mcg (1/4 Of 100 Mcg) Tab) 25 mcg VAG Q4H PRN PRN Reason: cervical ripening Last Admin: 11/19/20 12:10 Dose: 25 mcg Documented by: Nalbuphine HCl (Nalbuphine 10 Mg/1 Ml Vial) 10 mg IVPUSH Q2H PRN PRN Reason: Pain Ondansetron HCl (Ondansetron 4 Mg/2 Ml Sdv) 4 mg IVPUSH Q4H PRN PRN Reason: Nausea Sodium Chloride (Sodium Chloride 0.9% 10 Ml Syringe) 10 ml FLUSH ASDIRECTED PRN PRN Reason: Keep Vein Open Discontinued Medications Ondansetron HCl (Ondansetron 4 Mg/2 Ml Sdv) 4 mg IVPUSH Q4HR KAMALA Last Admin: 11/20/20 00:27 Dose: 4 mg Documented by: - Uterine Contractions Uterine Monitoring Mode: External [place] Contraction Frequency (min): 4 Contraction Intensity: Moderate to Strong Uterine Resting Tone: Soft - Monitoring Monitor Mode: Doppler/Auscultation Heart Rate (FHR) Baseline: 130 Heart Rate (FHR) Variability: Moderate (6-25 bpm) Accelerations: Present, 15x15 Decelerations: Early Strip Review: Category I - Vaginal Exam Dilation (cm): 5 Effacement (Percent): 80 Station: -3 Cervical Position: Midposition Sterile Vaginal Exam Performed By: Mykel Ortiz - Labor Progress (Free Text) Labor Progress: Took over patient's care at 0600. Patient began IOL for presumed cholestasis of / gestational HTN yesterday at 1200. Has had chatman bulb and 1 dose of cytotec to start. Then had AROM at 1800 last night. Has had slow/minimal change since then. Currently pitocin at 20. IUPC just placed. Reviewed with patient will continue to work towards vaginal delivery, but may be that can not get her in active pattern of labor / cervical change. Will continue to increase to 30. She agrees. Repeat labs done this AM. Plts stable just above 200. LFT's slightly more elevated that previous. BP's normal since epidural
[2020-11-20] MEDS ORDERED: Azithromycin 500 MG in Sodium Chloride 0.9% 250 ML IV ONE (10:45)
[2020-11-20] MEDS ORDERED: ceFAZolin 2 GM in Premix Bag 1 BAG IV ONE (10:45)
[2020-11-20] MEDS ORDERED: Metoclopramide 10 MG/2 ML SDV IVPUSH ONE (10:45)
[2020-11-20] MEDS ORDERED: Citric Acid/Sodium Citrate Solution 30 ML Cup PO ONE (10:45)
[2020-11-20] MEDS: Lactated Ringers 1,000 ML IV SCH (11:32)
[2020-11-20] MEDS ORDERED: Morphine PF 10 MG/10 ML SDV ONE (11:35)
[2020-11-20] MEDS ORDERED: fentaNYL 100 MCG/2 ML SDV ONE (11:35)
[2020-11-20] MEDS ORDERED: Lidocaine 2% with EPINEPHrine 1:200,000 20 ML SDV ONE ×2 (11:36)
[2020-11-20] MEDS ORDERED: Oxytocin 10 Units/1 ML SDV ONE ×2 (11:36→12:17)
[2020-11-20] MEDS ORDERED: ceFAZolin 1 GM Vial ONE (11:39)
[2020-11-20] MEDS ORDERED: Bupivacaine 0.5% 10 ML SDV ONE (11:42)
--- NOTE | 2020-11-20 11:43 | PCM.OPNOTE ---
- General Post-Op/Procedure Note Date of Surgery/Procedure: 11/20/20 Operative Procedure(s): Primary low transverse Findings: Baby boy in a vertex presentation. APGARS of 8 & 9, Weight of 7 lbs 13 oz. Normal appearance of the uterus, fallopian tubes, and ovaries Pre Op Diagnosis: 38 0/7 wks. Presumed cholestasis of . Gestational HTN. FTP in 1st stage Post-Op Diagnosis: Same Anesthesia Technique: Epidural Primary Surgeon: Josey Sosa Secondary Surgeon: George Tyson Anesthesia Provider: Wesley Jackson Reason Manager Human Resources Was Necessary: BMI of 38, speed and safety of procedure Pathology: Cord blood collected. Placenta discarded Fluid Replacement, Intraop: 1,600 Output, Urine Amount: 400 EBL in mLs: 700 Complications: None Condition: Good Free Text/Narrative:: The risks, benefits, indications, potential complications, and alternatives were explained to the patient and informed consent obtained. After induction of anesthesia, the patient was placed in a supine position and then draped and prepped in the usual sterile manner. A Pfannenstiel incision was made and carried down through the subcutaneous tissue to the fascia. Fascial incision was made and extended transversely. The fascia was from the underlying rectus tissue superiorly and inferiorly. The peritoneum was identified and entered. Peritoneal incision was extended longitudinally. The utero-vesical peritoneal reflection was incised transversely and the bladder flap was bluntly freed from the lower uterine segment. A low transverse uterine incision was made sharply with a scalpel and extended bluntly in a cephalocaudad direction. A baby boy was delivered from vertex presentation with APGARS as above. After the umbilical cord was clamped and cut cord blood was obtained for evaluation. The placenta was removed intact and appeared normal. The uterus was exteriorized and cleared of clots. The uterine outline, tubes and ovaries appeared normal. The uterine incision was closed with running locked sutures of 0 Vicryl. Hemostasis was obtained with a second imbricating layer of 0 Vicryl. The uterus was then placed back into the abdomen. The infracolic gutters were cleared of blood clots. The fascia was then reapproximated with running sutures of 0 Vicryl. The subcutaneous tissue was irrigated with sterile warm normal saline, hemostasis obtained with cautery. This layer was also closed with a running 0 Vicryl. The skin was reapproximated with running Subcuticular 4-0 Monocryl suture and sealed with Dermabond. Instrument, sponge, and needle counts were correct prior the abdominal closure and at the conclusion of the case.
--- NOTE | 2020-11-20 11:43 | PCM.SN.2 ---
- Free Text/Narrative Note: 1130 Patient now up to 30 of pitocin. Contractions never adequate on IUPC. (now dislodged with motion/turning). Reviewed could certainly stop pitocin, do a wash out, and restart. I feel less confident in the success of that. Other option would be moving forward with PLTCS. Patient ok with . Azithromycin and Ancef for prophylaxis. OR, peds made aware. Josey Sosa MD
[2020-11-20] MEDS ORDERED: Lactated Ringers 1,000 ML ONE (12:14)
[2020-11-20] MEDS ORDERED: Ondansetron 4 MG/2 ML SDV ONE (12:28)
[2020-11-20] MEDS ORDERED: Ketorolac 30 MG/ML SDV ONE (12:28)
--- NOTE | 2020-11-20 12:50 | PCM.POSTAN ---
POST ANESTHESIA ASSESSMENT - MENTAL STATUS Mental Status: Alert, Oriented - VITAL SIGNS Vital Signs: Postoperative Vital Signs 122/70 86 HR 95% RA 10 RR 100.3 F - RESPIRATORY Respiratory Status: Respiratory Rate WNL, Airway Patent, O2 Saturation Stable - CARDIOVASCULAR CV Status: Pulse Rate WNL, Blood Pressure Stable - GASTROINTESTINAL GI Status: No Symptoms - PAIN Pain Score: 0 (post epidural) - POST OP HYDRATION Hydration Status: Adequate & Stable
[2020-11-20] MEDS ORDERED: ePHEDrine 50 MG/ML SDV IVPUSH PRN (14:09)
[2020-11-20] MEDS ORDERED: Docusate Sodium 100 MG Cap PO PRN (14:09)
[2020-11-20] MEDS ORDERED: Ondansetron 4 MG/2 ML SDV IV PRN (14:09)
[2020-11-20] MEDS ORDERED: Dextrose 5%-Lactated Ringers 1,000 ML IV SCH (14:09)
[2020-11-20] MEDS ORDERED: diphenhydrAMINE 50 MG/ML SDV IVPUSH PRN (14:09)
[2020-11-20] MEDS: Ketorolac 30 MG/ML SDV IVPUSH SCH (18:44)
[2020-11-21] MEDS: Ketorolac 30 MG/ML SDV IVPUSH SCH ×2 (01:00→06:34)
[2020-11-21] MEDS: Acetaminophen/oxyCODONE 325-5 MG Tab PO PRN ×4 (06:35→22:34)
--- NOTE | 2020-11-21 07:40 | PCM.PNPP ---
- General Info Date of Service: 11/21/20 Functional Status: Reports: Pain Controlled, Tolerating Diet, Ambulating, Urinating - Review of Systems General: Reports: No Symptoms Pulmonary: Reports: No Symptoms Cardiovascular: Reports: No Symptoms Gastrointestinal: Reports: Abdominal Pain (manageable ) Genitourinary: Reports: No Symptoms - Patient Data Vital Signs - Most Recent: Last Vital Signs Temp 36.2 C 11/21/20 05:27 Pulse 81 11/21/20 05:27 Resp 15 11/21/20 06:00 BP 117/71 11/21/20 05:27 Pulse Ox 97 11/21/20 06:00 Weight - Most Recent: 117.934 kg I&O - Last 24 Hours: Intake & Output 11/20/20 11/21/20 11/21/20 22:59 06:59 14:59 Intake Total 1000 2200 Output Total 425 800 Balance 575 1400 Lab Results - Last 24 Hours: Laboratory Results - last 24 hr 11/19/20 11/21/20 11/21/20 Range/Units 11:05 06:12 06:12 WBC 14.59 H (3.98-10.04) K/mm3 RBC 3.27 L (3.98-5.22) M/mm3 Hgb 8.9 L (11.2-15.7) gm/dl Hct 27.5 L (34.1-44.9) % MCV 84.1 (79.4-94.8) fl MCH 27.2 (25.6-32.2) pg MCHC 32.4 (32.2-35.5) g/dl RDW Std Deviation 43.9 (36.4-46.3) fL Plt Count 238 (182-369) K/mm3 MPV 10.4 (9.4-12.3) fl Sodium 136 (136-145) mEq/L Potassium 4.0 (3.5-5.1) mEq/L Chloride 103 (98-107) mEq/L Carbon Dioxide 22 (21-32) mEq/L Anion Gap 15.0 (5-15) BUN 7 (7-18) mg/dL Creatinine 0.9 (0.55-1.02) mg/dL Est Cr Clr Drug Dosing 92.05 mL/min Estimated GFR (MDRD) > 60 (>60) mL/min BUN/Creatinine Ratio 7.8 L (14-18) Glucose 92 (70-99) mg/dL Calcium 7.9 L (8.5-10.1) mg/dL Total Bilirubin 0.4 (0.2-1.0) mg/dL AST 70 H (15-37) U/L ALT 83 H (14-59) U/L Alkaline Phosphatase 214 H (46-116) U/L Total Protein 5.5 L (6.4-8.2) g/dl Albumin 1.7 L (3.4-5.0) g/dl Globulin 3.8 gm/dL Albumin/Globulin Ratio 0.5 L (1-2) RPR Non-reactive (NONREACTIVE) Med Orders - Current: Current Medications Diphenhydramine HCl (Diphenhydramine 50 Mg/Ml Sdv) 25 mg IVPUSH Q6H PRN PRN Reason: Itching or Nausea Docusate Sodium (Docusate Sodium 100 Mg Cap) 100 mg PO Q12H PRN PRN Reason: Constipation Ephedrine Sulfate (Ephedrine 50 Mg/Ml Sdv) 5 mg IVPUSH SEECOMMENT PRN PRN Reason: Other Fluoxetine HCl (Fluoxetine 20 Mg Cap) 40 mg PO DAILY KAMALA Ibuprofen (Ibuprofen 600 Mg Tab) 600 mg PO Q6H PRN PRN Reason: mild pain or fever Ondansetron HCl (Ondansetron 4 Mg/2 Ml Sdv) 4 mg IVPUSH ONETIME PRN PRN Reason: Nausea/Vomiting Ondansetron HCl (Ondansetron 4 Mg/2 Ml Sdv) 4 mg IV Q8H PRN PRN Reason: Nausea/Vomiting Oxycodone/Acetaminophen (Acetaminophen/Oxycodone 325-5 Mg Tab) 1 tab PO Q4H PRN PRN Reason: Pain (moderate 4-6) Last Admin: 11/21/20 06:35 Dose: 1 tab Documented by: Oxycodone/Acetaminophen (Acetaminophen/Oxycodone 325-5 Mg Tab) 2 tab PO Q4H PRN PRN Reason: Pain (severe 7-10) Discontinued Medications Bupivacaine HCl (Bupivacaine 0.5% 10 Ml Sdv) Confirm Administered Dose 10 ml .ROUTE .STK-MED ONE Stop: 11/20/20 11:43 Cefazolin Sodium (Cefazolin 1 Gm Vial) Confirm Administered Dose 2 gm .ROUTE .STK-MED ONE Stop: 11/20/20 11:40 Citric Acid/Sodium Citrate (Citric Acid/Sodium Citrate Solution 30 Ml Cup) 30 ml PO ONETIME ONE Stop: 11/20/20 10:46 Last Admin: 11/20/20 11:31 Dose: 30 ml Documented by: Diphenhydramine HCl (Diphenhydramine 50 Mg/Ml Sdv) 25 mg IVPUSH Q6H PRN PRN Reason: pruritis Ephedrine Sulfate (Ephedrine 50 Mg/Ml Sdv) 5 mg IVPUSH ASDIRECTED PRN PRN Reason: Hypotension Last Admin: 11/20/20 00:05 Dose: 5 mg Documented by: Fentanyl (Fentanyl 100 Mcg/2 Ml Sdv) 100 mcg EPIDUR Q3H PRN PRN Reason: Pain Last Admin: 11/20/20 05:37 Dose: 100 mcg Documented by: Fentanyl (Fentanyl 100 Mcg/2 Ml Sdv) Confirm Administered Dose 100 mcg .ROUTE .STK-MED ONE Stop: 11/20/20 11:36 Fentanyl/Bupivacaine HCl (Bupivacaine/Fentanyl/Ns 100 Ml Bag) 100 ml EPIDUR ASDIRECTED PRN PRN Reason: Pain Last Admin: 11/20/20 07:29 Dose: 100 ml Documented by: Lactated Ringer's (Ringers, Lactated) 1,000 mls @ 100 mls/hr IV ASDIRECTED KAMALA Last Admin: 11/20/20 11:32 Dose: 999 mls/hr Documented by: Oxytocin/Lactated Ringer's (Pitocin In Lr 10 Units/1,000 Ml) 10 unit in 1,000 mls @ 12 mls/hr IV TITRATE KAMALA; Protocol Last Titration: 11/20/20 10:00 Dose: 28 munits/min, 168 mls/hr Documented by: Oxytocin/Lactated Ringer's (Pitocin In Lr 10 Units/1,000 Ml) 10 unit in 1,000 mls @ 500 mls/hr IV .CONTINUOUS KAMALA Lactated Ringer's (Ringers, Lactated) 1,000 mls @ 40 mls/hr IV ASDIRECTED KAMALA Cefazolin Sodium/Dextrose 2 gm (/ Premix) 50 mls @ 100 mls/hr IV ONETIME ONE Stop: 11/20/20 11:14 Last Admin: 11/20/20 12:29 Dose: Not Given Documented by: Azithromycin 500 mg/ Sodium (Chloride) 250 mls @ 250 mls/hr IV ONETIME ONE Stop: 11/20/20 11:44 Last Admin: 11/20/20 11:32 Dose: 250 mls/hr Documented by: Lactated Ringer's (Ringers, Lactated) Confirm Administered Dose 1,000 mls @ as directed .ROUTE .STK-MED ONE Stop: 11/20/20 12:15 Dextrose/Lactated Ringer's (Dextrose 5%-Lactated Ringers) 1,000 mls @ 125 mls/hr IV ASDIRECTED KAMALA Stop: 11/20/20 22:08 Last Admin: 11/20/20 16:07 Dose: 125 mls/hr Documented by: Ketorolac Tromethamine (Ketorolac 30 Mg/Ml Sdv) Confirm Administered Dose 30 mg .ROUTE .STK-MED ONE Stop: 11/20/20 12:29 Ketorolac Tromethamine (Ketorolac 30 Mg/Ml Sdv) 30 mg IVPUSH Q6H [facility] Stop: 11/21/20 06:31 Last Admin: 11/21/20 06:34 Dose: 30 mg Documented by: Lidocaine/Epinephrine (Lidocaine 2% With Epinephrine 1:200,000 20 Ml Sdv) Confirm Administered Dose 20 ml .ROUTE .STK-MED ONE Stop: 11/20/20 11:37 Metoclopramide HCl (Metoclopramide 10 Mg/2 Ml Sdv) 10 mg IVPUSH ONETIME ONE Stop: 11/20/20 10:46 Last Admin: 11/20/20 11:31 Dose: 10 mg Documented by: Miscellaneous Medication (Phenylephrine Hcl In 0.9% Nacl 1 Mg/10 Ml Syringe) Confirm Administered Dose 1 mg .ROUTE .STK-MED ONE Stop: 11/20/20 12:02 Misoprostol (Misoprostol 25 Mcg (1/4 Of 100 Mcg) Tab) 25 mcg VAG Q4H PRN PRN Reason: cervical ripening Last Admin: 11/19/20 12:10 Dose: 25 mcg Documented by: Morphine Sulfate (Morphine Pf 10 Mg/10 Ml Sdv) Confirm Administered Dose 10 mg .ROUTE .STK-MED ONE Stop: 11/20/20 11:36 Nalbuphine HCl (Nalbuphine 10 Mg/1 Ml Vial) 10 mg IVPUSH Q2H PRN PRN Reason: Pain Ondansetron HCl (Ondansetron 4 Mg/2 Ml Sdv) 4 mg IVPUSH Q4HR KAMALA Last Admin: 11/20/20 12:28 Dose: Not Given Documented by: Ondansetron HCl (Ondansetron 4 Mg/2 Ml Sdv) 4 mg IVPUSH Q4H PRN PRN Reason: Nausea Ondansetron HCl (Ondansetron 4 Mg/2 Ml Sdv) Confirm Administered Dose 8 mg .ROUTE .STK-MED ONE Stop: 11/20/20 12:29 Oxytocin (Oxytocin 10 Units/1 Ml Sdv) Confirm Administered Dose 20 unit .ROUTE .STK-MED ONE Stop: 11/20/20 11:37 Oxytocin (Oxytocin 10 Units/1 Ml Sdv) Confirm Administered Dose 10 unit .ROUTE .STK-MED ONE Stop: 11/20/20 12:18 Sodium Chloride (Sodium Chloride 0.9% 10 Ml Syringe) 10 ml FLUSH ASDIRECTED PRN PRN Reason: Keep Vein Open - Infant Interaction Infant Disposition, : [place] in Room with Family Feeding: Attempted ; Nursed Fair/Poor Support Person: - Recovery Exam Fundal Tone: Firm Fundal Level: 1 Fingerbreadths Below Umbilicus Fundal Placement: Midline Lochia Amount: Scant, Small Lochia Color: Rubra/Red Perineum Description: Intact, Minimal Bruising/Swelling Episiotomy/Laceration: None Bladder Status: Nonpalpable, Indwelling Catheter in Place Urinary Elimination: Indwelling Catheter - Exam General: Alert, Oriented, Cooperative Lungs: Clear to Auscultation, Normal Respiratory Effort Cardiovascular: Regular Rate, Regular Rhythm GI/Abdominal Exam: Soft, Tender (appropriate post op ) Extremities: Normal Inspection - Problem List & Annotations (1) 37 weeks gestation of SNOMED Code(s): 28078944 Code(s): Z3A.37 - 37 WEEKS GESTATION OF Status: Acute Current Visit: Yes (2) Intrahepatic cholestasis of in third trimester, antepartum SNOMED Code(s): 883725591, 069930656 Code(s): O26.613 - LIVER AND BILIARY TRACT DISORD IN , THIRD TRIMESTER; K83.1 - OBSTRUCTION OF BILE DUCT Status: Acute Current Visit: Yes (3) Pre-eclampsia during in third trimester, antepartum SNOMED Code(s): 093799437, 450125569 Code(s): O14.93 - UNSPECIFIED PRE-ECLAMPSIA, THIRD TRIMESTER Status: Acute Current Visit: Yes (4) Failure to progress in first stage of labor SNOMED Code(s): 101955021 Code(s): SMH2132 - Status: Acute Current Visit: Yes (5) S/P primary low transverse SNOMED Code(s): 911452453, 66718345, 272501575, 990692636, 776548307 Code(s): Z98.891 - HISTORY OF UTERINE SCAR FROM PREVIOUS SURGERY Status: Acute Current Visit: Yes - Problem List Review Problem List Initiated/Reviewed/Updated: Yes - My Orders Last 24 Hours: My Active Orders 11/20/20 Lunch Regular Diet [DIET] 11/20/20 14:09 Acetaminophen/oxyCODONE [Percocet 325-5 MG] 1 tab PO Q4H PRN Acetaminophen/oxyCODONE [Percocet 325-5 MG] 2 tab PO Q4H PRN Docusate Sodium [Colace] 100 mg PO Q12H PRN Ondansetron [Zofran] 4 mg IV Q8H PRN diphenhydrAMINE [Benadryl] 25 mg IVPUSH Q6H PRN ePHEDrine [ePHEDrine sulfate] 5 mg IVPUSH SEECOMMENT PRN 11/20/20 14:09 Activity as Tolerated [RC] .Routine Antiembolic Devices [RC] .Routine Communication Order [RC] PER UNIT ROUTINE Communication Order [RC] PER UNIT ROUTINE Intake and Output [RC] Q4H May Shower [RC] PER UNIT ROUTINE Notify Provider Intake and Out [RC] ASDIRECTED RT Incentive Spirometry [RC] Q2HWA Vital Signs [RC] Q4HR Assess Lochia [WOMSER] Per Unit Routine Assess Uterine Involution [WOMSER] Per Unit Routine Breast Pump [WOMSER] Per Unit Routine Heat Therapy [OM.PC] Per Unit Routine Peripheral IV Discontinue [OM.PC] Routine Sequential Compression Device [OM.PC] Per Unit Routine 11/21/20 09:00 FLUoxetine [PROzac] 40 mg PO DAILY 11/21/20 12:30 Ibuprofen [Motrin] 600 mg PO Q6H PRN 11/21/20 12:48 Urinary Catheter Removal [RC] Per Unit Routine - Assessment Assessment:: POD#1 - Plan Plan:: Routine cares Breast feeding BP's normal to mild range, continue to monitor closely LFT's not downtrending yet. Will repeat tomorrow Discharge home tin 1-2 days
--- NOTE | 2020-11-21 07:43 | PCM48HPAN ---
Post Anesthesia Note - EVALUATION WITHIN 48HRS OF ANESTHETIC Vital Signs in Normal Range: Yes Patient Participated in Evaluation: Yes Respiratory Function Stable: Yes Airway Patent: Yes Cardiovascular Function Stable: Yes Hydration Status Stable: Yes Pain Control Satisfactory: Yes Nausea and Vomiting Control Satisfactory: Yes Mental Status Recovered: Yes Vital Signs: Last Vital Signs Temp 36.2 C 11/21/20 05:27 Pulse 81 11/21/20 05:27 Resp 15 11/21/20 06:00 BP 117/71 11/21/20 05:27 Pulse Ox 97 11/21/20 06:00 - COMMENTS/OBSERVATIONS Free Text/Narrative:: no anesthesia complications noted
[2020-11-21] MEDS: FLUoxetine 20 MG Cap PO SCH (10:05)
[2020-11-21] MEDS: Ibuprofen 600 MG Tab PO PRN ×2 (13:58→20:11)
[2020-11-22] MEDS: Acetaminophen/oxyCODONE 325-5 MG Tab PO PRN ×2 (02:31→06:35)
[2020-11-22] MEDS: Ibuprofen 600 MG Tab PO PRN (02:32)
--- NOTE | 2020-11-22 06:35 | PCM.DCSUM1 ---
Discharge Summary - Discharge Data Discharge Date: 11/22/20 Discharge Disposition: Home, Self-Care 01 Condition: Good - Referral to Home Health Primary Care Physician: Josey Sosa MD - Discharge Diagnosis/Problem(s) (1) 37 weeks gestation of SNOMED Code(s): 94023890 ICD Code: Z3A.37 - 37 WEEKS GESTATION OF Status: Acute (2) Intrahepatic cholestasis of in third trimester, antepartum SNOMED Code(s): 314506147, 858524204 ICD Code: O26.613 - LIVER AND BILIARY TRACT DISORD IN , THIRD TRIMESTER; K83.1 - OBSTRUCTION OF BILE DUCT Status: Acute (3) Pre-eclampsia during in third trimester, antepartum SNOMED Code(s): 253208018, 127318051 ICD Code: O14.93 - UNSPECIFIED PRE-ECLAMPSIA, THIRD TRIMESTER Status: Acute (4) Failure to progress in first stage of labor SNOMED Code(s): 380548505 ICD Code: QVA2725 - Status: Acute (5) S/P primary low transverse SNOMED Code(s): 286682311, 24763751, 366074553, 939176265, 448865651 ICD Code: Z98.891 - HISTORY OF UTERINE SCAR FROM PREVIOUS SURGERY Status: Acute - Patient Summary/Data Operative Procedure(s) Performed: Primary low transverse Complications: None Consults: None Recommended Follow-up Testing/Procedures: Follow up in 1 week for BP check and 3 weeks for check Hospital Course: Patient is a 35 y/o at 37 6/7 wks who presented to L&D with concerns of new onset of itching of palms and soles. Bile acids drawn and pending. LFT's mildly elevated. Because of symptoms and findings induction begun for presumed cholestasis. During course of induction also with mildly elevated BP's. Induction done with cytotec and chatman bulb. Then had pitocin augmentation and AROM. Unfortunately despite being ruptured for 18 hours and on 30 of pitocin was never able to make change beyond 5 cm. Was taken for PLTCS for FTP. C- section uncomplicated. See operative note. BP's remained normal to mild range. LFT's started slight drop by POD#2. She was otherwise doign well and desired discharge on POD#2 which was done - Patient Instructions Diet: Regular Diet as Tolerated Activity: No Lifting Over 10 Pounds Activity, Other: Pelvic rest for 6 weeks Driving: Do Not Drive (While taking pain medication ) Showering/Bathing: May Shower, No Tub Bathing/Swimming Wound/Incision Care: Keep Operative Site/Wound Site Clean and Dry Notify Provider of: Fever, Increased Pain, Swelling and Redness, Drainage, Nausea and/or Vomiting - Discharge Plan *PRESCRIPTION DRUG MONITORING PROGRAM REVIEWED*: No *COPY OF PRESCRIPTION DRUG MONITORING REPORT IN PATIENT ROMANA: No Prescriptions/Med Rec: Acetaminophen/oxyCODONE [Percocet 325-5 MG] 1 - 2 tab PO Q4H PRN #25 tablet PRN Reason: Pain (Severe 7-10) Home Medications: Home Meds FLUoxetine [PROzac] 40 mg PO DAILY 11/19/20 [History] Pnv,Calcium 72/Iron/Folic Acid [ Vitamin Plus Low Iron] 1 each PO DAILY 11/19/20 [History] Acetaminophen/oxyCODONE [Percocet 325-5 MG] 1 - 2 tab PO Q4H PRN #25 tablet 11/22/20 [Rx] Docusate Sodium [Colace] 100 mg PO Q12H PRN cap 11/22/20 [Rx] Ibuprofen [Motrin] 600 mg PO Q6H PRN tablet 11/22/20 [Rx] Patient Handouts: Care After Delivery Referrals: Josey Sosa MD [Primary Care Provider] - (1 week RN only BP check 3 weeks for check) - Discharge Summary/Plan Comment DC Time >30 min.: No Total # of Minutes for Discharge Time: 20 - Patient Data Vitals - Most Recent: Last Vital Signs Temp 36.2 C 11/22/20 03:24 Pulse 75 11/22/20 03:24 Resp 14 11/22/20 03:24 BP 145/92 H 11/22/20 03:24 Pulse Ox 95 11/22/20 03:24 Weight - Most Recent: 117.934 kg I&O - Last 24 hours: Intake & Output 11/21/20 11/21/20 11/22/20 14:59 22:59 06:59 Intake Total 0 0 Output Total 1725 300 Balance -1725 -300 Lab Results - Last 24 hrs: Laboratory Results - last 24 hr 08/08/21 08/08/21 08/10/21 Range/Units 10:50 10:50 06:12 Sodium 136 (136-145) mEq/L Potassium 4.0 (3.5-5.1) mEq/L Chloride 103 (98-107) mEq/L Carbon Dioxide 22 (21-32) mEq/L Anion Gap 15.0 (5-15) BUN 7 (7-18) mg/dL Creatinine 0.9 (0.55-1.02) mg/dL Est Cr Clr Drug Dosing 92.05 mL/min Estimated GFR (MDRD) > 60 (>60) mL/min BUN/Creatinine Ratio 7.8 L (14-18) Glucose 92 (70-99) mg/dL Calcium 7.9 L (8.5-10.1) mg/dL Total Bilirubin 0.4 (0.2-1.0) mg/dL AST 70 H (15-37) U/L ALT 83 H (14-59) U/L Alkaline Phosphatase 214 H (46-116) U/L Total Protein 5.5 L (6.4-8.2) g/dl Albumin 1.7 L (3.4-5.0) g/dl Globulin 3.8 gm/dL Albumin/Globulin Ratio 0.5 L (1-2) Bile Acids 31.0 H (0.0-10.0) umol/L Hepatitis C Antibody <0.1 (0.0-0.9) s/co ratio Med Orders - Current: Current Medications Diphenhydramine HCl (Diphenhydramine 50 Mg/Ml Sdv) 25 mg IVPUSH Q6H PRN PRN Reason: Itching or Nausea Docusate Sodium (Docusate Sodium 100 Mg Cap) 100 mg PO Q12H PRN PRN Reason: Constipation Last Admin: 11/21/20 20:11 Dose: 100 mg Documented by: Ephedrine Sulfate (Ephedrine 50 Mg/Ml Sdv) 5 mg IVPUSH SEECOMMENT PRN PRN Reason: Other Fluoxetine HCl (Fluoxetine 20 Mg Cap) 40 mg PO DAILY KAMALA Last Admin: 11/21/20 10:05 Dose: 40 mg Documented by: Ibuprofen (Ibuprofen 600 Mg Tab) 600 mg PO Q6H PRN PRN Reason: mild pain or fever Last Admin: 11/22/20 02:32 Dose: 600 mg Documented by: Ondansetron HCl (Ondansetron 4 Mg/2 Ml Sdv) 4 mg IVPUSH ONETIME PRN PRN Reason: Nausea/Vomiting Ondansetron HCl (Ondansetron 4 Mg/2 Ml Sdv) 4 mg IV Q8H PRN PRN Reason: Nausea/Vomiting Oxycodone/Acetaminophen (Acetaminophen/Oxycodone 325-5 Mg Tab) 1 tab PO Q4H PRN PRN Reason: Pain (moderate 4-6) Last Admin: 11/22/20 02:31 Dose: 1 tab Documented by: Oxycodone/Acetaminophen (Acetaminophen/Oxycodone 325-5 Mg Tab) 2 tab PO Q4H PRN PRN Reason: Pain (severe 7-10) Last Admin: 11/21/20 22:34 Dose: 2 tab Documented by: Discontinued Medications Bupivacaine HCl (Bupivacaine 0.5% 10 Ml Sdv) Confirm Administered Dose 10 ml .ROUTE .STK-MED ONE Stop: 11/20/20 11:43 Bupivacaine HCl (Bupivacaine 0.25% 10 Ml Sdv) 10 ml .ROUTE .STK-MED ONE Stop: 11/20/20 00:01 Bupivacaine HCl (Bupivacaine 0.25% 10 Ml Sdv) 10 ml .ROUTE .STK-MED ONE Stop: 11/20/20 00:01 Cefazolin Sodium (Cefazolin 1 Gm Vial) Confirm Administered Dose 2 gm .ROUTE .STK-MED ONE Stop: 11/20/20 11:40 Citric Acid/Sodium Citrate (Citric Acid/Sodium Citrate Solution 30 Ml Cup) 30 ml PO ONETIME ONE Stop: 11/20/20 10:46 Last Admin: 11/20/20 11:31 Dose: 30 ml Documented by: Diphenhydramine HCl (Diphenhydramine 50 Mg/Ml Sdv) 25 mg IVPUSH Q6H PRN PRN Reason: pruritis Ephedrine Sulfate (Ephedrine 50 Mg/Ml Sdv) 5 mg IVPUSH ASDIRECTED PRN PRN Reason: Hypotension Last Admin: 11/20/20 00:05 Dose: 5 mg Documented by: Fentanyl (Fentanyl 100 Mcg/2 Ml Sdv) 100 mcg EPIDUR Q3H PRN PRN Reason: Pain Last Admin: 11/20/20 05:37 Dose: 100 mcg Documented by: Fentanyl (Fentanyl 100 Mcg/2 Ml Sdv) Confirm Administered Dose 100 mcg .ROUTE .STK-MED ONE Stop: 11/20/20 11:36 Fentanyl/Bupivacaine HCl (Bupivacaine/Fentanyl/Ns 100 Ml Bag) 100 ml EPIDUR ASDIRECTED PRN PRN Reason: Pain Last Admin: 11/20/20 07:29 Dose: 100 ml Documented by: Lactated Ringer's (Ringers, Lactated) 1,000 mls @ 100 mls/hr IV ASDIRECTED KAMALA Last Admin: 11/20/20 11:32 Dose: 999 mls/hr Documented by: Oxytocin/Lactated Ringer's (Pitocin In Lr 10 Units/1,000 Ml) 10 unit in 1,000 mls @ 12 mls/hr IV TITRATE KAMALA; Protocol Last Titration: 11/20/20 10:00 Dose: 28 munits/min, 168 mls/hr Documented by: Oxytocin/Lactated Ringer's (Pitocin In Lr 10 Units/1,000 Ml) 10 unit in 1,000 mls @ 500 mls/hr IV .CONTINUOUS KAMALA Lactated Ringer's (Ringers, Lactated) 1,000 mls @ 40 mls/hr IV ASDIRECTED [facility] Cefazolin Sodium/Dextrose 2 gm (/ Premix) 50 mls @ 100 mls/hr IV ONETIME ONE Stop: 11/20/20 11:14 Last Admin: 11/20/20 12:29 Dose: Not Given Documented by: Azithromycin 500 mg/ Sodium (Chloride) 250 mls @ 250 mls/hr IV ONETIME ONE Stop: 11/20/20 11:44 Last Admin: 11/20/20 11:32 Dose: 250 mls/hr Documented by: Lactated Ringer's (Ringers, Lactated) Confirm Administered Dose 1,000 mls @ as directed .ROUTE .STK-MED ONE Stop: 11/20/20 12:15 Dextrose/Lactated Ringer's (Dextrose 5%-Lactated Ringers) 1,000 mls @ 125 mls/hr IV ASDIRECTED KAMALA Stop: 11/20/20 22:08 Last Admin: 11/20/20 16:07 Dose: 125 mls/hr Documented by: Ketorolac Tromethamine (Ketorolac 30 Mg/Ml Sdv) Confirm Administered Dose 30 mg .ROUTE .STK-MED ONE Stop: 11/20/20 12:29 Ketorolac Tromethamine (Ketorolac 30 Mg/Ml Sdv) 30 mg IVPUSH Q6H KAMALA Stop: 11/21/20 06:31 Last Admin: 11/21/20 06:34 Dose: 30 mg Documented by: Lidocaine/Epinephrine (Lidocaine 2% With Epinephrine 1:200,000 20 Ml Sdv) Confirm Administered Dose 20 ml .ROUTE .STK-MED ONE Stop: 11/20/20 11:37 Lidocaine/Epinephrine (Lidocaine 1.5% With Epinephrine 1:200,000 5 Ml Amp) 5 ml .ROUTE .STK-MED ONE Stop: 11/20/20 00:01 Lidocaine/Epinephrine (Lidocaine 1.5% With Epinephrine 1:200,000 5 Ml Amp) 5 ml .ROUTE .STK-MED ONE Stop: 11/20/20 00:01 Lidocaine/Epinephrine (Lidocaine 1.5% With Epinephrine 1:200,000 5 Ml Amp) 5 ml .ROUTE .STK-MED ONE Stop: 11/20/20 00:01 Lidocaine/Epinephrine (Lidocaine 1.5% With Epinephrine 1:200,000 5 Ml Amp) 5 ml .ROUTE .STK-MED ONE Stop: 11/20/20 00:01 Lidocaine/Epinephrine (Lidocaine 2% With Epinephrine 1:200,000 20 Ml Sdv) 20 ml .ROUTE .STK-MED ONE Stop: 11/20/20 00:01 Metoclopramide HCl (Metoclopramide 10 Mg/2 Ml Sdv) 10 mg IVPUSH ONETIME ONE Stop: 11/20/20 10:46 Last Admin: 11/20/20 11:31 Dose: 10 mg Documented by: Miscellaneous Medication (Phenylephrine Hcl In 0.9% Nacl 1 Mg/10 Ml Syringe) Confirm Administered Dose 1 mg .ROUTE .STK-MED ONE Stop: 11/20/20 12:02 Misoprostol (Misoprostol 25 Mcg (1/4 Of 100 Mcg) Tab) 25 mcg VAG Q4H PRN PRN Reason: cervical ripening Last Admin: 11/19/20 12:10 Dose: 25 mcg Documented by: Morphine Sulfate (Morphine Pf 10 Mg/10 Ml Sdv) Confirm Administered Dose 10 mg .ROUTE .STK-MED ONE Stop: 11/20/20 11:36 Nalbuphine HCl (Nalbuphine 10 Mg/1 Ml Vial) 10 mg IVPUSH Q2H PRN PRN Reason: Pain Ondansetron HCl (Ondansetron 4 Mg/2 Ml Sdv) 4 mg IVPUSH Q4HR KAMALA Last Admin: 11/20/20 12:28 Dose: Not Given Documented by: Ondansetron HCl (Ondansetron 4 Mg/2 Ml Sdv) 4 mg IVPUSH Q4H PRN PRN Reason: Nausea Ondansetron HCl (Ondansetron 4 Mg/2 Ml Sdv) Confirm Administered Dose 8 mg .ROUTE .STK-MED ONE Stop: 11/20/20 12:29 Oxytocin (Oxytocin 10 Units/1 Ml Sdv) Confirm Administered Dose 20 unit .ROUTE .STK-MED ONE Stop: 11/20/20 11:37 Oxytocin (Oxytocin 10 Units/1 Ml Sdv) Confirm Administered Dose 10 unit .ROUTE .STK-MED ONE Stop: 11/20/20 12:18 Phenylephrine HCl (Phenylephrine/Normal Saline 100 Mcg/Ml 10 Ml Syringe) 1 mg .ROUTE .STK-MED ONE Stop: 11/20/20 00:01 Sodium Chloride (Sodium Chloride 0.9% 10 Ml Syringe) 10 ml FLUSH ASDIRECTED PRN PRN Reason: Keep Vein Open
[2020-11-22] MEDS: FLUoxetine 20 MG Cap PO SCH (08:14)
== END 2020-11-22 12:25 | disposition home or self-care (01) | DRG 786 ==
LOC: JD.OB 10:27 → JD.OBCHECK 10:27 → JD.OB 11:28 → OBSVTOIN 11-20 12:08 → JD.OB 11-20 12:09
PROVIDERS: ADMIT Obstetrics & Gynecology; ATTEND Obstetrics & Gynecology
PROC: 10D00Z1 Extraction of Products of Conception, Low, Open Approach (ICD-10-PCS; principal; 2020-11-20)
PROC: 3E0R3BZ Introduction of Anesthetic Agent into Spinal Canal, Percutaneous Approach (ICD-10-PCS; 2020-11-20)
PROC: 00HU33Z Insertion of Infusion Device into Spinal Canal, Percutaneous Approach (ICD-10-PCS; 2020-11-20)
PROC: 10H07YZ Insertion of Other Device into Products of Conception, Via Natural or Artificial Opening (ICD-10-PCS; 2020-11-20)
DX: O26.62 Liver and biliary tract disorders in childbirth (principal); K83.1 Obstruction of bile duct; Z3A.37 37 weeks gestation of pregnancy; Z37.0 Single live birth; O99.214 Obesity complicating childbirth; O99.344 Other mental disorders complicating childbirth; F41.8 Other specified anxiety disorders; E66.9 Obesity, unspecified; O43.113 Circumvallate placenta, third trimester; O62.0 Primary inadequate contractions; Z20.822 Contact with and (suspected) exposure to COVID-19; O13.4 Gestational [pregnancy-induced] hypertension without significant proteinuria, complicating childbirth
CPT/HCPCS: 01967; 01968; 36415; 51702; 59025; 80053; 82239; 82570; 82977; 83615; 84156; 84450; 84460; 85025; 85027; 86592; 86803; 94762; A9270-GY; J0456; J0690; J1885; J2270; J2370; J2405; J2590; J2765; J3010; J3490; J7050; J7120; J7121; U0002

== ENCOUNTER 2021-10-06 19:07 | Emergency (ER) | payer OTHER ==
[2021-10-06] MEDS ORDERED: Sodium Chloride 0.9% 1,000 ML IV STA (19:27)
[2021-10-06] MEDS ORDERED: Ondansetron 4 MG/2 ML SDV IVPUSH ONE ×2 (19:27→20:37)
[2021-10-06] MEDS ORDERED: Sodium Chloride 0.9% 10 ML Syringe FLUSH PRN (19:27)
== END 2021-10-06 21:31 | disposition home or self-care (01) ==
LOC: JD.ED 19:07
DX: O21.9 Vomiting of pregnancy, unspecified (principal); Z3A.09 9 weeks gestation of pregnancy; Z20.822 Contact with and (suspected) exposure to COVID-19
CPT/HCPCS: 36415; 80053; 81001; 83735; 85025; 87635; 96361; 96374; 96376; 99284; J2405; J3490; J7030; 99283; U0002

== ENCOUNTER 2022-04-23 13:35 | Inpatient (IN) | payer OTHER ==
[2022-04-23] MEDS ORDERED: Oxytocin/Lactated Ringers 10 UNIT/1,000 ML BAG IV SCH (18:02)
[2022-04-23] MEDS ORDERED: Nalbuphine 10 MG/0.5 ML Syringe IVPUSH PRN (18:02)
[2022-04-23] MEDS ORDERED: Sodium Chloride 0.9% 10 ML Syringe FLUSH PRN (18:02)
[2022-04-23] MEDS ORDERED: Acetaminophen 325 MG Tab PO PRN (18:02)
[2022-04-23] MEDS: Lactated Ringers 1,000 ML IV SCH (18:27)
[2022-04-23] MEDS: Oxytocin/Lactated Ringers 10 UNIT/1,000 ML BAG IV SCH (18:29)
[2022-04-24] MEDS ORDERED: Bupivacaine 0.25% 10 ML SDV ONE ×2
[2022-04-24] MEDS: Lactated Ringers 1,000 ML IV SCH ×3 (01:16→14:00)
[2022-04-24] MEDS: Oxytocin/Lactated Ringers 10 UNIT/1,000 ML BAG IV SCH (06:20)
[2022-04-24] MEDS ORDERED: fentaNYL 100 MCG/2 ML SDV EPIDUR PRN (08:09)
[2022-04-24] MEDS ORDERED: ePHEDrine 50 MG/ML SDV IVPUSH PRN ×2 (08:09→18:41)
[2022-04-24] MEDS ORDERED: diphenhydrAMINE 50 MG/ML SDV IVPUSH PRN ×3 (08:09→18:41)
[2022-04-24] MEDS ORDERED: Bupivacaine/fentaNYL/NS 100 ML Bag EPIDUR PRN (08:09)
[2022-04-24] MEDS ORDERED: Ondansetron 4 MG/2 ML SDV IVPUSH PRN ×2 (13:23→16:50)
[2022-04-24] MEDS ORDERED: Citric Acid/Sodium Citrate Solution 30 ML Cup PO ONE (15:05)
[2022-04-24] MEDS ORDERED: Metoclopramide 10 MG/2 ML SDV IVPUSH ONE (15:05)
[2022-04-24] MEDS ORDERED: Azithromycin 500 MG in Sodium Chloride 0.9% 250 ML IV ONE (15:05)
[2022-04-24] MEDS ORDERED: ceFAZolin 2 GM in Sodium Chloride 0.9% 50 ML IV ONE (15:07)
[2022-04-24] MEDS ORDERED: Ondansetron 4 MG/2 ML SDV ONE (15:15)
[2022-04-24] MEDS ORDERED: ceFAZolin 2 GM Vial ONE (15:15)
[2022-04-24] MEDS ORDERED: Lidocaine 2% with EPINEPHrine 1:200,000 20 ML SDV ONE (15:15)
[2022-04-24] MEDS ORDERED: Sodium Bicarbonate 8.4% 50 MEQ/50 ML SDV ONE (15:15)
[2022-04-24] MEDS ORDERED: Bupivacaine 0.5% 30 ML SDV ONE (15:18)
[2022-04-24] MEDS ORDERED: Morphine PF 10 MG/10 ML SDV ONE (16:17)
[2022-04-24] MEDS ORDERED: Lactated Ringers 1,000 ML ONE (16:30)
[2022-04-24] MEDS ORDERED: Ketorolac 30 MG/ML SDV ONE (16:30)
[2022-04-24] MEDS ORDERED: Meperidine 50 MG/ML Vial IVPUSH PRN (16:50)
[2022-04-24] MEDS ORDERED: fentaNYL 100 MCG/2 ML SDV IVPUSH PRN (16:50)
[2022-04-24] MEDS ORDERED: Methylergonovine 0.2 MG/1 ML Amp ONE (17:30)
[2022-04-24] MEDS: Methylergonovine 0.2 MG/1 ML Amp IM ONE ×2 (17:35)
[2022-04-24] MEDS ORDERED: metroNIDAZOLE/Normal Saline 500 MG in Premix Bag 1 BAG IV ONE (18:41)
[2022-04-24] MEDS ORDERED: Clindamycin Phosphate in D5W 900 MG in Premix Bag 1 BAG IV ONE ×2 (18:41)
[2022-04-24] MEDS ORDERED: Naloxone 0.4 MG/ML SDV IVPUSH PRN (18:41)
[2022-04-24] MEDS ORDERED: Acetaminophen/oxyCODONE 325-5 MG Tab PO PRN (18:41)
[2022-04-24] MEDS ORDERED: Dextrose 5%-Lactated Ringers 1,000 ML IV SCH (18:41)
[2022-04-24] MEDS: Sodium Chloride 0.9% 10 ML Syringe FLUSH SCH (18:56)
[2022-04-24] MEDS: Ketorolac 30 MG/ML SDV IVPUSH SCH (22:33)
[2022-04-25] MEDS: Ketorolac 30 MG/ML SDV IVPUSH SCH ×2 (04:30→10:34)
[2022-04-25] MEDS: Lactated Ringers 1,000 ML IV SCH (04:32)
[2022-04-25] MEDS ORDERED: Lactated Ringers 1,000 ML IV SCH (09:00)
[2022-04-25] MEDS: Acetaminophen/oxyCODONE 325-5 MG Tab PO PRN ×2 (14:18→21:57)
[2022-04-26] MEDS: Simethicone 80 MG Tab.Chew PO PRN ×2 (03:54→08:38)
[2022-04-26] MEDS: Acetaminophen/oxyCODONE 325-5 MG Tab PO PRN ×3 (04:28→21:47)
[2022-04-26] MEDS: Ibuprofen 600 MG Tab PO PRN ×2 (08:38→15:56)
[2022-04-26] MEDS: Docusate Sodium 100 MG Cap PO PRN (15:58)
[2022-04-27] MEDS: Ibuprofen 600 MG Tab PO PRN ×2 (00:59→08:12)
[2022-04-27] MEDS: Acetaminophen/oxyCODONE 325-5 MG Tab PO PRN ×2 (04:19→10:57)
[2022-04-27] MEDS ORDERED: Magnesium Hydroxide 400 MG/5 ML Susp 30 ML Cup PO ONE (07:27)
[2022-04-27] MEDS: Docusate Sodium 100 MG Cap PO PRN (08:12)
== END 2022-04-27 11:00 | disposition home or self-care (01) | DRG 787 ==
LOC: JD.OBCHECK 13:35 → JD.OB 13:40 → JD.OBCHECK 17:33 → JD.OB 17:33 → OBSVTOIN 04-24 16:14 → JD.OB 04-24 16:15
PROVIDERS: ADMIT Obstetrics & Gynecology; ATTEND Obstetrics & Gynecology
PROC: 10D00Z1 Extraction of Products of Conception, Low, Open Approach (ICD-10-PCS; principal; 2022-04-24)
PROC: 3E0R3BZ Introduction of Anesthetic Agent into Spinal Canal, Percutaneous Approach (ICD-10-PCS; 2022-04-24)
PROC: 00HU33Z Insertion of Infusion Device into Spinal Canal, Percutaneous Approach (ICD-10-PCS; 2022-04-24)
PROC: 10907ZC Drainage of Amniotic Fluid, Therapeutic from Products of Conception, Via Natural or Artificial Opening (ICD-10-PCS; 2022-04-24)
PROC: 3E033VJ Introduction of Other Hormone into Peripheral Vein, Percutaneous Approach (ICD-10-PCS; 2022-04-24)
DX: O13.4 Gestational [pregnancy-induced] hypertension without significant proteinuria, complicating childbirth (principal); D62 Acute posthemorrhagic anemia; Z37.0 Single live birth; Z3A.37 37 weeks gestation of pregnancy; O99.344 Other mental disorders complicating childbirth; F41.9 Anxiety disorder, unspecified; F32.A Depression, unspecified; O34.211 Maternal care for low transverse scar from previous cesarean delivery; O99.214 Obesity complicating childbirth; O99.62 Diseases of the digestive system complicating childbirth; K21.9 Gastro-esophageal reflux disease without esophagitis; Z87.891 Personal history of nicotine dependence; Z79.899 Other long term (current) drug therapy; O99.02 Anemia complicating childbirth
CPT/HCPCS: 01967; 01968; 36415; 51702; 59025; 80053; 82570; 83615; 84156; 85025; 86592; 86850; 86900; 86901; 94762; 99140; A9270-GY; C1726; J0456; J0690; J1885; J2210; J2274; J2300; J2405; J2590; J2765; J3010; J3490; J7050; J7120; J7121

== ENCOUNTER 2022-05-04 16:39 | Emergency (ER) | payer OTHER ==
[2022-05-04] MEDS ORDERED: cefTRIAXone 2 GM in Sodium Chloride 0.9% 100 ML IV ONE (17:05)
[2022-05-04] MEDS ORDERED: Acetaminophen 325 MG Tab PO ONE (17:57)
== END 2022-05-04 19:11 | disposition home or self-care (01) ==
LOC: JD.ED 16:39
DX: O86.01 Infection of obstetric surgical wound, superficial incisional site (principal); Z98.890 Other specified postprocedural states; E66.9 Obesity, unspecified; Z68.33 Body mass index [BMI] 33.0-33.9, adult; Z79.899 Other long term (current) drug therapy
CPT/HCPCS: 36415; 80053; 83605; 85025; 87040; 87070; 87075; 87077; 87186; 87205; 96365; 99283; A9270; J0696

== ENCOUNTER 2023-09-15 18:11 | Emergency (ER) | payer SELFPAY ==
[2023-09-15 18:42] LABS: BASOPHILS PERCENT AUTO 0.3 % (0.0-1.0); EOSINOPHILS PERCENT AUTO 0.3 % (0.0-6.0); HEMATOCRIT 48.7 % (37.0-47.0); HEMOGLOBIN 16.8 gm/dl (12.0-16.0); IMMATURE GRAN ABSOLUTE AUTO 0.13 K/mm3 (0.00-0.05); IMMATURE GRAN PERCENT AUTO 0.8 % (0.0-0.4); LYMPHOCYTES ABSOLUTE AUTO 2.4 K/mm3 (1.0-4.8); LYMPHOCYTES PERCENT AUTO 15.4 % (24.0-44.0); MEAN CORPUSCULAR HGB CONC 34.5 g/dl (32.0-36.0); MEAN CORPUSCULAR VOLUME 84.1 fl (83.0-99.0); MEAN PLATELET VOLUME 9.4 fl (9.4-12.3); MONOCYTES ABSOLUTE AUTO 0.5 K/mm3 (0.0-0.8); MONOCYTES PERCENT AUTO 3.1 % (0.0-8.0); NEUTROPHILS ABSOLUTE AUTO 12.6 K/mm3 (1.8-7.7); NEUTROPHILS PERCENT AUTO 80.1 % (41.0-71.0); PLATELET COUNT,PLT 298 K/mm3 (150-400); RED BLOOD CELL COUNT 5.79 M/mm3 (4.10-5.30)
[2023-09-15 18:51] LABS: A/G RATIO 1.1 (1-2); ALBUMIN 3.7 g/dl (3.4-5.0); ANION GAP 14.1 (5-15); BILIRUBIN TOTAL 0.5 mg/dL (0.2-1.0); C-REACTIVE PROTEIN 0.81 mg/dL (<0.30); CALCIUM 8.7 mg/dL (8.5-10.1); CREATININE 1.1 mg/dL (0.55-1.02); EST CRCL DRUG DOSING (CG) 75.72 mL/min; MAGNESIUM 1.8 mg/dL (1.8-2.4); POTASSIUM,K 4.1 mEq/L (3.5-5.1); PROTEIN TOTAL,TP 7.1 g/dl (6.4-8.2)
[2023-09-15 19:08] LABS: APPEARANCE,URINE CLOUDY (Clear); BILIRUBIN,URINE 1+ (Negative); COLOR,URINE DARK YELLOW (Yellow); GLUCOSE,URINE NEGATIVE (Negative); KETONES,URINE TRACE (Negative); LEUKOCYTE ESTERASE,URINE NEGATIVE (Negative); NITRITE,URINE NEGATIVE (Negative); OCCULT BLOOD,URINE NEGATIVE (Negative); PH,URINE 5.5 (5.0-8.0); PROTEIN,URINE TRACE (Negative); UROBILINOGEN,URINE 0.2 (0.2-1.0)
[2023-09-15] MEDS: Sodium Chloride 0.9% 1,000 ML IV SCH (19:14)
[2023-09-15] MEDS: Ondansetron 4 MG/2 ML SDV IVPUSH ONE (19:14)
[2023-09-15] MEDS: Sodium Chloride 0.9% 10 ML Syringe FLUSH PRN (19:15)
[2023-09-15] MEDS: Prochlorperazine 10 MG/2 ML SDV IVPUSH ONE (19:41)
[2023-09-15 19:43] LABS: SQUAMOUS EPITHELIAL CELLS,UR 20-30 /hpf (0-5)
[2023-09-15 19:44] LABS: BACTERIA,URINE MODERATE /hpf (FEW); CALCIUM OXALATE CRYSTALS,URINE RARE; MUCUS,URINE MODERATE /hpf (FEW)
[2023-09-15] MEDS: Iopamidol 612 MG/ML 100 ML Bottle IVPUSH ONE (19:57)
[2023-09-15] MEDS: Sodium Chloride 0.9% 10 ML Syringe FLUSH ONE (20:01)
[2023-09-15] MEDS: Lactated Ringers 1,000 ML IV ONE (20:41)
[2023-09-15] MEDS: Haloperidol Lactate 5 MG/ML SDV IVPUSH ONE (20:41)
== END 2023-09-15 22:18 | disposition home or self-care (01) ==
LOC: JD.ED 18:11
DX: K52.9 Noninfective gastroenteritis and colitis, unspecified (principal)
CPT/HCPCS: 36415; 74177; 80053; 81001; 83690; 83735; 84703; 85025; 86140; 87493; 96361; 96374; 96375; 99284; J0780; J1630; J2405; J3490; J7030; J7120; Q9967

== ENCOUNTER 2024-01-08 09:37 | Emergency (ER) | payer OTHER ==
[2024-01-08 10:10] LABS: BASOPHILS ABSOLUTE AUTO 0.1 K/mm3 (0.0-0.2); BASOPHILS PERCENT AUTO 0.6 % (0.0-1.0); EOSINOPHILS ABSOLUTE AUTO 0.2 K/mm3 (0.0-0.4); EOSINOPHILS PERCENT AUTO 2.9 % (0.0-6.0); HEMATOCRIT 47.6 % (37.0-47.0); HEMOGLOBIN 16.1 gm/dl (12.0-16.0); IMMATURE GRAN ABSOLUTE AUTO 0.03 K/mm3 (0.00-0.05); IMMATURE GRAN PERCENT AUTO 0.4 % (0.0-0.4); LYMPHOCYTES ABSOLUTE AUTO 2.9 K/mm3 (1.0-4.8); LYMPHOCYTES PERCENT AUTO 34.5 % (24.0-44.0); MEAN CORPUSCULAR HEMOGLOBIN 29.2 pg (28.0-32.0); MEAN CORPUSCULAR HGB CONC 33.8 g/dl (32.0-36.0); MEAN CORPUSCULAR VOLUME 86.2 fl (83.0-99.0); MEAN PLATELET VOLUME 9.7 fl (9.4-12.3); MONOCYTES ABSOLUTE AUTO 0.4 K/mm3 (0.0-0.8); MONOCYTES PERCENT AUTO 4.7 % (0.0-8.0); NEUTROPHILS ABSOLUTE AUTO 4.8 K/mm3 (1.8-7.7); NEUTROPHILS PERCENT AUTO 56.9 % (41.0-71.0); PLATELET COUNT,PLT 248 K/mm3 (150-400); RED BLOOD CELL COUNT 5.52 M/mm3 (4.10-5.30); WHITE BLOOD CELL COUNT,WBC 8.35 K/mm3 (3.9-11.3)
== END 2024-01-08 11:35 | disposition home or self-care (01) ==
LOC: JD.ED 09:37
DX: R07.89 Other chest pain (principal); D45 Polycythemia vera; K21.9 Gastro-esophageal reflux disease without esophagitis; F17.200 Nicotine dependence, unspecified, uncomplicated; Z79.899 Other long term (current) drug therapy; Z90.49 Acquired absence of other specified parts of digestive tract
CPT/HCPCS: 36415; 84484; 85025; 85379; 93005; 99285